=== PATIENT | male | born 1955 | race Caucasian/White ===

== ENCOUNTER 2021-05-18 11:10 | Emergency (ER) | payer OTHER, SELFPAY ==
--- NOTE | 2021-05-18 12:00 | VDLE_ITS ---
Reason For Study: Pain RIGHT LEFT GSV is normal. CFV is compressible, spontaneous, phasic, CFV is compressible, spontaneous, phasic, competent, and demonstrates normal competent and demonstrates normal augmentation. augmentation. FV is compressible, spontaneous, phasic, competent and demonstrates normal augmentation. POP V is compressible, spontaneous, phasic, competent and demonstrates normal augmentation. T/P Trunk is compressible. PTV is compressible. RT PerV is compressible. Procedure This is a venous duplex using B-mode, color flow and spectral Doppler. Exam performed portable in ED. A preliminary report was called and/or faxed to [facility]. VL/Venous Duplex US, Unilateral Interpretation Summary There is no evidence of right lower extremity deep vein thrombosis. Right great saphenous vein appears patent and compressible segmentally. Normal flow patterns left common f emoral vein Ordering Physician: Papito Garcia Referring Physician: [place] Do Performed By: Jenn King RVT
--- NOTE | 2021-05-18 15:33 | EDS_ITS ---
DATE OF SERVICE 05/18/21 CHIEF COMPLAINT: Right foot pain and near syncope. HISTORY OF PRESENT ILLNESS: This patient is a 65-year-old male who presents with right foot pain over his medial ankle for the past month and a half. The patient states that it has gradually gotten worse. The patient describes his pain as stabbing. The patient states that he had an open area from a ruptured vein. The patient states that the bleeding had stopped after this. The patient states that he has been having some persistent pain. The patient states that he was placed on an antibiotic approximately one month ago for this. The patient states that he completed the antibiotic approximately 2 weeks ago. The patient was on Keflex and doxycycline for this. The patient states that he had some pain going up his leg. He is concerned about possible blood clot. He states that nothing makes the pain worse and nothing makes it better. The patient denies any fever or chills. The patient denies any paresthesias or weakness. PAST MEDICAL HISTORY: Denies. PAST SURGICAL HISTORY: Lipoma excision from forehead. MEDICATIONS: None. ALLERGIES: None. SOCIAL HISTORY: The patient smokes one pack of alcohol per day. The patient denies any alcohol or drug use. REVIEW OF SYSTEMS: GENERAL: The patient denies any fever or chills. EYES: Denies any visual changes, blurry vision or diplopia. ENT: The patient denies any sore throat or rhinorrhea. CARDIOVASCULAR: Denies any chest pain or palpitations. RESPIRATORY: Denies any shortness of breath or cough. GI: Denies any nausea or vomiting. : The patient denies dysuria or hematuria. MUSCULOSKELETAL: The patient denies any neck pain or back pain. SKIN: The patient denies any rash or abscess. NEUROLOGIC: The patient denies any headaches or weakness. ALLERGIES: The patient denies hives or swelling. PHYSICAL EXAMINATION: GENERAL: The patient is in no acute distress. VITAL SIGNS: Stable. The patient is afebrile. HEENT: Oral mucosa is pink and moist. EXTREMITIES: There is tenderness over the medial aspect of the right ankle. There is some mild erythema. There is induration noted. There is no active bleeding noted. There is 2+ pedal pulses noted on the right. Capillary refill is less than 2 seconds in all digits. NEUROLOGIC: Cranial nerves II-XII are intact. There are no focal motor or sensory deficits noted. Strength is 5/5 bilaterally in the lower extremities. DIAGNOSTIC DATA: Venous Duplex of the right lower extremity was obtained and showed no evidence of DVT. CBC obtained and there was mild leukocytosis of 11.6. Platelets were normal. Basic metabolic profile was obtained and was essentially within normal limits. EMERGENCY DEPARTMENT COURSE AND MEDICAL DECISION MAKING: The patient was given a dose of Ancef here. The patient was given a prescription for Augmentin. IMPRESSION: Cellulitis, right ankle. DISPOSITION/PLAN: The patient was instructed to follow up with his primary care physician in 5-7 days. The patient was instructed to return if worse in any way. The patient understood and was agreeable with the plan. All questions were answered. The patient was discharged in stable condition.
[2021-05-18 21:18] LABS: Absolute Lymphocyte Count 2.35 X10^3/uL (0.83-4.51); Absolute Neutrophil Count 8.6 X10^3/uL (2.0-7.7); Basophil# 0.03 X10^3/uL; Basophil% 0.3 % (0-1); Eosinophil# 0.09 X10^3/uL; Eosinophils% 0.8 % (0-5); Hematocrit 43.8 % (40-54); Hemoglobin 14.6 g/dL (13.0-16.5); Lymphocyte # 2.35 X10^3/ul (0.83-4.51); Lymphocyte % 20.3 % (19-41); Mean Corp Hgb Conc 33.3 g/dL (32-36); Mean Corpuscular Hgb 29.2 pg (27.0-32.0); Mean Corpuscular Volume 87.6 fL (80-94); Mean Platelet Vol. 10.4 fl (6.2-12.0); Monocyte# 0.53 X10^3/uL; Monocyte% 4.6 % (0-10); NRBC Flagged by Analyzer 0 % (0-5); Neutrophil # 8.57 X10^3/uL (2.7-7.7); Neutrophil % 73.7 % (47-70); Platelet Count 196 K/mm3 (150-450); RBC Distribution Width CV 14.9 % (11.6-14.6); RBC Distribution Width SD 47.5 fl (35.1-43.9); White Blood Count 11.6 K/mm3 (4.4-11.0)
[2021-05-19 01:30] LABS: Anion Gap 4 (5-15); BUN 15 mg/dL (7-18); BUN/Creat Ratio 14.9 RATIO (10-20); Calcium,Total 8.8 mg/dL (8.5-10.1); Chloride 108 mmol/L (98-107); Creatinine, Serum 1.01 mg/dL (0.70-1.30); EST Glomerular Filtration Rate 79 mL/min (>60); Est Glom Filt Rate - Afr Amer 95 mL/min (>60); Glucose 134 mg/dL (74-106); Potassium 4.1 mmol/L (3.5-5.1); Sodium Level 140 mmol/L (136-145)
== END 2021-05-18 15:50 | disposition home or self-care (01) ==
PROVIDERS: Emergency Provider Emergency Medicine; PCP Internal Medicine; Referring Provider Emergency Medicine; Visit Provider Emergency Medicine
DX: L03.115 Cellulitis of right lower limb (principal); F17.210 Nicotine dependence, cigarettes, uncomplicated
CPT/HCPCS: 80048; 85025; 93971; 96365; 99284

== ENCOUNTER 2021-06-13 08:30 | Outpatient (RCR) | payer OTHER, SELFPAY ==
[2021-05-30 09:05] VITALS: BP 162/105; PULSE 96; RESP 18; TEMP 36.5; BMI 32.3
--- NOTE | 2021-05-30 10:19 | PCM.WC.HP ---
History of Present Illness Date of Service: 05/30/21 Chief Complaint: Wound right medial ankle History of Wound: This is a 65-year-old male who presents with a wound to the right medial ankle just distal to the malleoli secondary to rupture of a varicose vein complicated by smoking and venous insufficiency and edema. He states that he has been dealing with this wound for a few months and has been applying topical lidocaine for pain control. His family physician has recommended compression stockings and he states that he tries to wear them but states they are too painful and cannot continue to wear them for the duration of the day. He states he can only last a few hours in them. He states that the site is painful and has shown very little progression. His family physician has referred him to the wound care center to continue his treatment. He denies any weeping to the wound site. He denies any nausea, vomiting, fever, chills, or shortness of breath or other constitutional symptoms. [facility] Social History Smoking Status: Current some day smoker ROS Constitutional Constitutional: Denies chills, fever(s), malaise or weakness Eyes Eyes: Denies blurry vision, double vision or eye pain ENT HEENT: Denies dysphagia, nasal congestion, nasal discharge or sore throat Cardiovascular Cardiovascular: Denies chest pain, claudication or palpitations Respiratory/Chest Respiratory/Chest: Denies cough, productive cough or wheezing Gastrointestinal Gastrointestinal: Denies abdominal pain, constipation, diarrhea, nausea or vomiting Genitourinary Genitourinary: Denies dysuria, hematuria, urinary incontinence or urinary urgency Musculoskeletal Musculoskeletal: Reports tingling; Denies joint pain or joint stiffness Integumentary Integumentary: Denies jaundice, lesions or rash Neurologic Neurologic: Reports paresthesias and tingling; Denies dizziness or headache(s) Psychiatric Psychiatric: Denies anxiety or depression Endocrine Endocrinology: Denies cold intolerance, heat intolerance, polydipsia or polyuria Hematologic/Lymphatic Hematologic/Lymphatic: Denies easy bleeding or easy bruising Vital Signs Vital Signs Vital Signs: 05/30/21 09:05 Temperature 97.7 F L Temperature Source Temporal Pulse Rate 96 Respiratory Rate 18 Blood Pressure 162/105 H Blood Pressure Mean 124 Blood Pressure Source Monitor Blood Pressure Position Semi-Fowlers Blood Pressure Location Right Arm Weight Weight: 90.718 kg Body Mass Index (BMI) 32.3 Physical Exam Const alert, oriented x3 and no apparent distress General Appearance: cooperative and comfortable HEENT normocephalic Eyes General Eye: normal appearance of both eyes Neck General: normal visual inspection Lymph Lymphatic: no lymphadenopathy noted and no lymphedema noted Resp normal respiratory effort Cardio regular rate and regular rhythm Extremity Peripheral Pulses: Yes posterior tibial pulses present bilateral and dorsalis pedis pulses present bilateral Skin Skin Narrative: Skin is intact, soft and supple to palpation with normal skin turgor. Right lower extremity wound is noted just distal to the medial malleolus with mixed fibrous granular tissue base and puckered skin margins with surrounding rubor and hemosiderin deposition secondary to chronic venous efficiency. Localized edema about the site is appreciated. Wound demonstrates no localized erythema, purulent drainage, malodor, proximal streaking, or other localized signs of infection. There is no drainage to the wound base or from the wound. There are varicosities noted along the medial ankle and medial foot. Neuro Motor Exam: strength 5/5 throughout Debridement Note Debridement Note Wound debrided: Right medial ankle Laterality: Right Type of Debridement: Excisional debridement Anesthesia Used: 5% Lidocaine Gel and - (4 cc 1% lidocaine plain injected about the site and to the posterior tibial nerve right ankle) Depth: Down to and including healthy tissue and in the subcutaneous layer Percentage of wound debrided: 100 Instrument Used: #15 blade and - (1 mm curette) Tissue Removed: Fibrous, devitalized subcutaneous, biofilm, slough Severity: Fat Layer Exposed Amount of bleeding with debridement: Mild Bleeding Controlled with: Pressure Patient tolerated procedure: Patient tolerated procedure well Post-Debridement Measurements and Additional Note: Post-Debridement Measurements/Treatment PINEDA - Nurse 1 - General Ulcer Assessment Start: 05/30/21 09:02 Freq: Status: Active Protocol: KALI Activity Type Activity Date Activity User E-Sign Co-Sign Detail Recorded Client Recorded Date Recorded By Document 05/30/21 09:05 KYLIE [id number] 05/30/21 09:22 KYLIE 05/30/21 09:05 - Today's Visit Information Type of service Initial Visit Arrival Mode Ambulatory Patient Identification Verified (Name & Yes ) Patient Requires Transmission-Based No Precautions Height and Weight Height 5 ft 6 in Weight 90.718 kg Weight in Pounds 200.0 lbs Weight Measurement Method Estimated by Patient Body Mass Index (BMI) 32.3 BMI Classification Obese BSA - Marie 2.00 Vital Signs Temperature (97.8 F-99.1 F) 97.7 F L Temperature Source Temporal Pulse Rate (60-100) 96 Pulse Location Monitor Respiratory Rate (12-18) 18 Respiratory rate source Observation Blood Pressure (90/60-120/80) 162/105 H Blood Pressure Mean 124 Source Monitor Position Semi-Fowlers Blood Pressure Location Right Arm History Since Last Visit- (Skip if this is Patient's initial visit) Have you changed medications since your No last visit? Any new allergies or adverse reactions No Had a fall/change in ADL's that may No increase risk of falls Signs or symptoms of abuse and/or No neglect since last visit Have you been in the hospital since your No last visit? Has dressing in place as prescribed Yes Has compression in place as prescribed N/A Has offloadiing in place as prescribed N/A Experienced any changes in pain level or No management Left Footwear Regular Shoe Right Footwear Regular Shoe Pain Scale: 0-10 Numeric Is Patient Pain Free? Yes Communication Assessment Preferred language [place] Carbon Accountant Required No Teaching Assessment Preferences Verbal,Written, Demonstration Barriers to Learning None Readiness To Learn Excellent Willingness to Engage in Self Management High Activies Readiness to Engage in Self Management High Activities Anxiety Level Calm Cooperation Cooperative Perception Coherent Interest in Health Problem Asks Questions Education Importance Acknowledges Need Does Patient Smoke tobacco or other Yes substances Smoking Status Current some day smoker Is Patient Diabetic No Functional Assessment Recent Decline in Ability to Perform Denies Any Declines Culture/Pentecostal/Glazier Helper Cultural/Pentecostal Needs that may affect No Treatment Plan Would you allow our hospital operations management trainee to No meet you for the purpose of spiritual/ emotional support? Glazier Helper to contact place of uatsdin No Teaching: Wound Center [facility] Orientation/ Contacting Physician -Person Taught Patient -Teaching Method Discussion, Demonstration -Response to teaching Return demonstration, Verbalize understanding - Nurse 1 - General Ulcer Measurement Start: 05/30/21 09:02 Freq: Status: Active Protocol: Activity Type Activity Date Activity User E-Sign Co-Sign Detail Recorded Client Recorded Date Recorded By Document 05/30/21 09:05 KYLIE [id number] 05/30/21 09:22 KYLIE 05/30/21 09:05 Wound Center Nurse 1 1-right medial ankle ulcer -Combined with other wound No -Current Size (cm) - Length 1.3 -Current Size (cm) - Width 0.4 -Current Size (cm) - Depth 0.2 -Total Square Cm 0.52 -Photo Taken Yes -Epithelialization Small 1-33% -Tunneling No -Undermining/Tunneling No -Circular Undermining No -Classification - Thickness Full Thickness without Exposed Support Structure -Exudate Amt Small -Exudate Type Serosanguineous -Wound Margin Flat & Intact -Granulation Amt Small (1-33%) -Granulation Quality [place] -Slough/Fibrin Yes -Necrosis Amt Medium (34-66%) -Necrotic Tissue Type Adherent Slough -Structure Exposed N/A -Texture (Марина-wound Skin Appearance) Assessed, Localized Edema -Moisture (Марина-wound Skin Appearance) Assessed,Dry/ Scaly -Color (Марина-wound Skin Appearance) Assessed, Hemosiderin Staining -Temperature (Марина-wound Skin No Abnormality Appearance) (Pt Warm) -Tenderness on Palpation (Марина-wound No Skin Appearance) -Ulcer Cleansing Wound Cleanser -Foul Odor after Cleansing No -Anesthetic Used 4% Lidocaine Solution Lower Limb Edema Present Yes Right Calf (cm) 39.5 Right Ankle (cm) 23.6 Left Calf (cm) 39.7 Left Ankle (cm) 21.6 Assessment/Plan Assessment/Plan (1) Non-pressure chronic ulcer of right ankle with fat layer exposed: CODE(S): L97.312 - Non-pressure chronic ulcer of right ankle with fat layer exposed (2) Varicose veins of lower extremity with pain: CODE(S): I83.819 - Varicose veins of unspecified lower extremity with pain (3) Pain in right ankle and joints of right foot: CODE(S): M25.571 - Pain in right ankle and joints of right foot (4) Radiculopathy, lumbar region: CODE(S): M54.16 - Radiculopathy, lumbar region (5) H/O acute gouty arthritis: CODE(S): Z87.39 - Personal history of other diseases of the musculoskeletal system and connective tissue (6) Edema of lower extremity due to peripheral venous insufficiency: CODE(S): I87.2 - Venous insufficiency (chronic) (peripheral) PLAN: This is a 65-year-old male who presents to the wound care center for a right medial ankle wound secondary to chronic venous insufficiency. He has history of gout and radiculopathy lumbar region. He has tried to wear compression stockings but states he can only tolerate them for a few hours and at the end of his work shift his legs hurt and he has to remove them. He is followed by his primary care physician for this wound but states it has made little progress. He has tried topical lidocaine to control the pain and states that he previously had an incident where he passed out a few weeks ago, likely due to topical lidocaine absorption. Ulceration right medial ankle distal to the medial malleolus was anesthetized with topical 5% lidocaine gel and sharply debrided with a #15 blade and a 1 mm curette. During debridement patient felt pain and a local anesthetic block was performed of the surrounding tissue and posterior tibial nerve consisting of 4 cc 1% lidocaine plain. Debridement was halted to allow anesthetic medication to take effect. Once patient was numb debridement commenced removing fibrous, devitalized subcutaneous, biofilm, slough. Ulceration site dressed with Vidhi, hydrogel, dry sterile dressing, and a dual layer of Tubigrip was applied to the right lower extremity. I discussed with patient that he is to continue to elevate both lower extremities at times of rest and to be compliant in wearing his Tubigrip stocking until he can get back into his compression stockings full-time. I discussed with him that it is essential to be compliant in use of compression stockings to promote wound healing, discourage further edema, and ulcerative wound secondary to his chronic venous insufficiency. I also discussed if he is having difficulty wearing his compression stocking that other styles of compression stocking including zipper or Velcro can be prescribed so that he may remain compliant in this. Patient voices understanding of this. I discussed with patient that he is to continue dressing changes daily consisting of Vidhi and hydrogel to the site and dressing with clean sterile dry dressings. I discussed with him that he is to monitor for any localized redness or redness that may spread up the leg, purulent drainage, malodor, increasing pain that is not controlled by [id number] pain medications, or if he experiences any fever, nausea, vomiting, or chills that he is to report to the emergency room as these are signs of progressing infection. Patient voices understanding of this. I reviewed and discussed his case today. Debridement was performed today as noted in the clinical panel to all of the ulcer sites. The following work up and care recommendations were made: Dressing: Vidhi and hydrogel Wash: Soap and water. He may pat the site dry. Tissue growth optimization: Vidhi Offload: Compression via Tubigrip stocking Vascular: Vascular status intact with palpable pedal pulses Edema: Patient to wear Tubigrip stocking and elevate lower extremity to control edema Infection: No localized signs of infection Pain: Patient may take [id number] Tylenol extra strength and alternate with Motrin Host factors: Chronic venous insufficiency I answered all the patient's questions. To return to the wound healing center in 1 week or call sooner if the patient has any questions or concerns. The problems addressed require a low medical decision making level which includes two or more minor problems, a stable chronic illness, or an acute uncomplicated illness or injury. The medical decision making level is low. There is noted low risk of morbidity after considering this treatment plan and diagnostic data. Note: [employer]ood speech recognition lay brother software was used to create portions of this document. Sound-alike and misspelled words, as well as other lay brother errors may be contained in the documentation.
[2021-06-06 08:30] VITALS: BP 153/94; PULSE 101; RESP 16; TEMP 36.2; BMI 32.3
--- NOTE | 2021-06-06 08:47 | PCM.WC.PN ---
History of Present Illness Date of Service: 06/06/21 Chief Complaint: Wound right medial ankle History of Wound: This is a 65-year-old male who presents with a wound to the right medial ankle just distal to the malleoli secondary to rupture of a varicose vein complicated by smoking and venous insufficiency and edema. He states that he has been dealing with this wound for a few months and has been applying topical lidocaine for pain control. His family physician has recommended compression stockings and he states that he tries to wear them but states they are too painful and cannot continue to wear them for the duration of the day. He states he can only last a few hours in them. He states that the site is painful and has shown very little progression. His family physician has referred him to the wound care center to continue his treatment. He denies any weeping to the wound site. He denies any nausea, vomiting, fever, chills, or shortness of breath or other constitutional symptoms. Subjective Subjective This 65-year-old male presents for follow-up of right medial ankle ulceration secondary to chronic venous insufficiency. He states the numbing medication lasted till mid afternoon last week but states that the site was still painful following his debridement. He took [id number] Tylenol for his discomfort. He continues to deny any nausea, vomiting, fever, chills, shortness of breath, or other constitutional symptoms. He states that he has noticed a significant decrease in size since his last visit here and has been compliant with his Tubigrip compression and elevation of his legs. Objective Data Objective Data Vital Signs: Vital Signs Temp Pulse Resp BP 97.2 F L 101 H 16 153/94 H 06/06/21 08:30 06/06/21 08:30 06/06/21 08:30 06/06/21 08:30 Oxygen Delivery Method Room Air Weight: 90.718 kg Body Mass Index (BMI) 32.3 Physical Exam Const alert, oriented x3 and no apparent distress General Appearance: cooperative and comfortable HEENT normocephalic Eyes General Eye: normal appearance of both eyes Neck General: normal visual inspection Lymph Lymphatic: no lymphadenopathy noted and no lymphedema noted Resp normal respiratory effort Cardio regular rate and regular rhythm Skin Skin Narrative: Skin is intact, soft and supple to palpation with normal skin turgor. Right lower extremity wound is noted just distal to the medial malleolus with mixed fibrous granular tissue base and puckered skin margins with surrounding rubor, which is decreasing, and hemosiderin deposition secondary to chronic venous efficiency. Localized edema about the site is resolving. Wound demonstrates no localized erythema, purulent drainage, malodor, proximal streaking, or other localized signs of infection. There is no drainage to the wound base or from the wound. There are varicosities noted along the medial ankle and medial foot. Neuro Motor Exam: strength 5/5 throughout Debridement Note Debridement Note Wound debrided: Right medial ankle distal to the medial malleoli Laterality: Right Wound Grade/Stage: Lovell stage I Type of Debridement: Excisional debridement Anesthesia Used: 5% Lidocaine Gel Depth: in the subcutaneous layer Percentage of wound debrided: 100 Instrument Used: - (1 mm curette) Tissue Removed: Fibrous, devitalized subcutaneous, biofilm, slough Severity: Fat Layer Exposed Amount of bleeding with debridement: Mild Bleeding Controlled with: Pressure Patient tolerated procedure: Patient tolerated procedure well Post-Debridement Measurements and Additional Note: Post-Debridement Measurements/Treatment - Nurse 1 - General Ulcer Assessment Start: 05/30/21 09:02 Freq: Status: Active Protocol: [email or web address].[email or web address] Activity Type Activity Date Activity User E-Sign Co-Sign Detail Recorded Client Recorded Date Recorded By Document 05/30/21 09:05 [id number] 05/30/21 09:22 Document 06/06/21 08:30 [facility] [id number] 06/06/21 08:36 [facility] 05/30/21 06/06/21 09:05 08:30 - Today's Visit Information Type of service Initial Visit Follow-up Visit (Physician/INTERMEDIATE FRAME TENDER ) Arrival Mode Ambulatory Ambulatory Transfer Assistance None Patient Identification Verified (Name & Yes Yes ) Patient Requires Transmission-Based No No Precautions Height and Weight Height 5 ft 6 in Weight 90.718 kg Weight in Pounds 200.0 lbs Weight Measurement Method Estimated by Patient Body Mass Index (BMI) 32.3 32.3 BMI Classification Obese Obese BSA - Marie 2.00 Vital Signs Temperature (97.8 F-99.1 F) 97.7 F L 97.2 F L Temperature Source Temporal Temporal Pulse Rate (60-100) 96 101 H Pulse Location Monitor Monitor Respiratory Rate (12-18) 18 16 Respiratory rate source Observation Observation Oxygen Delivery Method Room Air Blood Pressure (90/60-120/80) 162/105 H 153/94 H Blood Pressure Mean (mm Hg) 124 113 Source Monitor Monitor Position Semi-Fowlers Sitting Blood Pressure Location Right Arm Left Arm History Since Last Visit- (Skip if this is Patient's initial visit) Have you changed medications since your No No last visit? Any new allergies or adverse reactions No No Had a fall/change in ADL's that may No No increase risk of falls Signs or symptoms of abuse and/or No No neglect since last visit Have you been in the hospital since your No No last visit? Has dressing in place as prescribed Yes No Has compression in place as prescribed N/A Yes Has offloadiing in place as prescribed N/A N/A Experienced any changes in pain level or No No management Left Footwear Regular Shoe Regular Shoe Right Footwear Regular Shoe Regular Shoe Pain Scale: 0-10 Numeric Is Patient Pain Free? Yes Yes Communication Assessment Preferred language [employer] Chemistry Teacher Required No Teaching Assessment Preferences Verbal,Written, Demonstration Barriers to Learning None Readiness To Learn Excellent Willingness to Engage in Self Management High Activies Readiness to Engage in Self Management High Activities Anxiety Level Calm Cooperation Cooperative Perception Coherent Interest in Health Problem Asks Questions Education Importance Acknowledges Need Does Patient Smoke tobacco or other Yes substances Smoking Status Current some day smoker Is Patient Diabetic No Functional Assessment Recent Decline in Ability to Perform Denies Any Declines 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 Cold Storage Superintendent to contact place of muslim No Teaching: Wound Center [facility] Orientation/ Contacting Physician -Person Taught Patient -Teaching Method Discussion, Demonstration -Response to teaching Return demonstration, Verbalize understanding - Nurse 1 - General Ulcer Measurement Start: 05/30/21 09:02 Freq: Status: Active Protocol: Activity Type Activity Date Activity User E-Sign Co-Sign Detail Recorded Client Recorded Date Recorded By Document 05/30/21 09:05 [id number] 05/30/21 09:22 Document 06/06/21 08:30 [facility] [id number] 06/06/21 08:36 BMF 05/30/21 06/06/21 09:05 08:30 Wound Center Nurse 1 1-right medial ankle ulcer -Combined with other wound No No -Current Size (cm) - Length 1.3 0.5 -Current Size (cm) - Width 0.4 0.3 -Current Size (cm) - Depth 0.2 0.1 -Total Square Cm 0.52 0.15 -Date of Last Picture (Recall this 06/06/21 field) -Photo Taken Yes Yes -Epithelialization Small 1-33% Small 1-33% -Tunneling No No -Undermining/Tunneling No No -Circular Undermining No No -Classification - Thickness Full Thickness without Exposed Support Structure -Exudate Amt Small Medium -Exudate Type Serosanguineous Serous -Wound Margin Flat & Intact Distinct, Outline Attached -Granulation Amt Small (1-33%) Small (1-33%) -Granulation Quality Emerald Red -Slough/Fibrin Yes Yes -Necrosis Amt Medium (34-66%) Large (67-100%) -Necrotic Tissue Type Adherent Slough Adherent Slough -Structure Exposed N/A -Texture (Марина-wound Skin Appearance) Assessed, Assessed, Localized Edema Scarring -Moisture (Марина-wound Skin Appearance) Assessed,Dry/ Assessed,Dry/ Scaly Scaly -Color (Марина-wound Skin Appearance) Assessed, Assessed Hemosiderin Staining -Temperature (Марина-wound Skin No Abnormality No Abnormality Appearance) (Pt Warm) (Pt Warm) -Tenderness on Palpation (Марина-wound No Yes Skin Appearance) -Ulcer Cleansing Wound Cleanser Rinsed/ Irrigated with Saline -Foul Odor after Cleansing No No -Anesthetic Used 4% Lidocaine 5% Lidocaine Solution Gel Lower Limb Edema Present Yes Yes Right Calf (cm) 39.5 42 Right Ankle (cm) 23.6 24.5 Left Calf (cm) 39.7 Left Ankle (cm) 21.6 WC - Nurse 2 - General Ulcer CM Notes Start: 05/30/21 09:02 Freq: Status: Active Protocol: Activity Type Activity Date Activity User E-Sign Co-Sign Detail Recorded Client Recorded Date Recorded By Document 05/30/21 12:49 [id number] 05/30/21 12:53 PL 05/30/21 12:49 Wound Center Nurse 2 1-right medial ankle ulcer -Time 09:43 -Correct Patient Yes -Correct Side, Site, Position Yes -Correct Procedure Yes -Procedure Performed Yes -Type of Procedure Debridement -Clinical Debridement Subcutaneous -Tissue Removed Subcutaneous -Post Debridement (cm) - Length 1.3 -Post Debridement (cm) - Width 0.4 -Post Debridement (cm) - Depth 0.2 -Total Square (Post) (cm) 0.52 -Area of Debridement (cm) - Length 1.3 -Area of Debridement (cm) - Width 0.4 -Total Square (Area) (cm) 0.52 -Tunneling No -Undermining/Tunneling No -Circular Undermining No -Wound/Ulcer Outcome Not Healed -Ulcer Cleansing Rinsed/ Irrigated with Saline -Foul Odor after Cleansing No -Bioengineered Tissue No -Bleeding Controlled with Pressure -Treatment Response Procedure Tolerated Well -Debridement - Subq, 1st 20sq cm Yes Pain Scale: 0-10 Numeric Is Patient Pain Free? Yes WC - Nurse 3 - General Ulcer D/C NN Start: 05/30/21 09:02 Freq: Status: Active Protocol: Activity Type Activity Date Activity User E-Sign Co-Sign Detail Recorded Client Recorded Date Recorded By Document 05/30/21 12:49 PL [id number] 05/30/21 12:53 PL 05/30/21 12:49 Is Patient Pain Free? Yes Teaching: Wound Center Compression Wraps & Stockings -Person Taught Patient -Teaching Method Discussion -Response to teaching Verbalize understanding *Welcome to the Wound Center -Person Taught Patient -Teaching Method Discussion -Response to teaching Verbalize understanding Wound Care Nurse 3 1-right medial ankle ulcer -Ulcer Cleansing Rinsed/ Irrigated with Saline -Foul Odor after Cleansing No -Primary Dressing Applied Promogran Vidhi Matter -Primary Dressing Covered/Secured with Dry Gauze, Secured with Tape -Promogran Vidhi Matter 1 Right -Tubular Bandage Double Layer -Size of Tubigrip Used Size E -Size E ($) 2 WC - Visit Discharge Discharge Condition Stable Ambulatory Status Ambulatory Transportation Private Auto Assessment/Plan Assessment/Plan (1) Non-pressure chronic ulcer of right ankle with fat layer exposed: CODE(S): L97.312 - Non-pressure chronic ulcer of right ankle with fat layer exposed (2) Varicose veins of lower extremity with pain: CODE(S): I83.819 - Varicose veins of unspecified lower extremity with pain (3) Pain in right ankle and joints of right foot: CODE(S): M25.571 - Pain in right ankle and joints of right foot (4) Radiculopathy, lumbar region: CODE(S): M54.16 - Radiculopathy, lumbar region (5) H/O acute gouty arthritis: CODE(S): Z87.39 - Personal history of other diseases of the musculoskeletal system and connective tissue (6) Edema of lower extremity due to peripheral venous insufficiency: CODE(S): I87.2 - Venous insufficiency (chronic) (peripheral) PLAN: This is a 65-year-old male who presents to the wound care center for a right medial ankle wound secondary to chronic venous insufficiency. He has history of gout and radiculopathy lumbar region. He has tried to wear compression stockings but states he can only tolerate them for a few hours and at the end of his work shift his legs hurt and he has to remove them. He is followed by his primary care physician for this wound but states it has made little progress. He has tried topical lidocaine to control the pain and states that he previously had an incident where he passed out a few weeks ago, likely due to topical lidocaine absorption. Ulceration right medial ankle distal to the medial malleolus was anesthetized with topical 5% lidocaine gel and sharply debrided with a 1 mm curette. Debridement was performed removing fibrous, devitalized subcutaneous, biofilm, slough. Ulceration demonstrates reduction in size compared to previous visit and today measures 0.5 cm x 0.3 cm x 0.1 cm. Surrounding rubor is resolving along with his localized edema to his right lower extremity. He states that the site has not hurt him in the last few days, for the first time in a few months. He is pleased with the results and his reducing ulceration size. Ulceration site dressed with Vidhi, hydrogel, dry sterile dressing, and a dual layer of Tubigrip was applied to the right lower extremity. I discussed with patient that he is to continue to elevate both lower extremities at times of rest and to be compliant in wearing his Tubigrip stocking until he can get back into his compression stockings full-time. I discussed with him that it is essential to be compliant in use of compression stockings to promote wound healing, discourage further edema, and ulcerative wound secondary to his chronic venous insufficiency. I also discussed if he is having difficulty wearing his compression stocking that other styles of compression stocking including zipper or Velcro can be prescribed so that he may remain compliant in this. Patient voices understanding of this. I discussed with patient that he is to continue dressing changes daily consisting of Vidhi and hydrogel to the site and dressing with clean sterile dry dressings. I discussed with him that he is to monitor for any localized redness or redness that may spread up the leg, purulent drainage, malodor, increasing pain that is not controlled by [id number] pain medications, or if he experiences any fever, nausea, vomiting, or chills that he is to report to the emergency room as these are signs of progressing infection. Patient voices understanding of this. I reviewed and discussed his case today. Debridement was performed today as noted in the clinical panel to all of the ulcer sites. The following work up and care recommendations were made: Dressing: Vidhi and hydrogel Wash: Soap and water. He may pat the site dry. Tissue growth optimization: Vidhi Offload: Compression via Tubigrip stocking Vascular: Vascular status intact with palpable pedal pulses Edema: Patient to wear Tubigrip stocking and elevate lower extremity to control edema Infection: No localized signs of infection Pain: Patient may take [id number] Tylenol extra strength and alternate with Motrin Host factors: Chronic venous insufficiency I answered all the patient's questions. To return to the wound healing center in 1 week or call sooner if the patient has any questions or concerns. The problems addressed require a low medical decision making level which includes two or more minor problems, a stable chronic illness, or an acute uncomplicated illness or injury. The medical decision making level is low. There is noted low risk of morbidity after considering this treatment plan and diagnostic data. Note: -[employer] speech recognition senior solutions consultant software was used to create portions of this document. Sound-alike and misspelled words, as well as other senior solutions consultant errors may be contained in the documentation.
[2021-06-13 08:20] VITALS: BP 138/89; PULSE 101; RESP 20; TEMP 36.5; BMI 32.3
--- NOTE | 2021-06-13 09:14 | PCM.WC.PN ---
History of Present Illness Date of Service: 06/13/21 Chief Complaint: Wound right medial ankle History of Wound: This is a 65-year-old male who presents with a wound to the right medial ankle just distal to the malleoli secondary to rupture of a varicose vein complicated by smoking and venous insufficiency and edema. He states that he has been dealing with this wound for a few months and has been applying topical lidocaine for pain control. His family physician has recommended compression stockings and he states that he tries to wear them but states they are too painful and cannot continue to wear them for the duration of the day. He states he can only last a few hours in them. He states that the site is painful and has shown very little progression. His family physician has referred him to the wound care center to continue his treatment. He denies any weeping to the wound site. He denies any nausea, vomiting, fever, chills, or shortness of breath or other constitutional symptoms. Subjective Subjective This is a 65-year-old male who presents to the wound care center for follow-up of ulceration right medial ankle secondary to chronic venous insufficiency, and ruptured varicose vein. Patient denies any nausea, vomiting, fever, chills, shortness of breath, or other contusional symptoms. He states that he had to cut out the side of his right shoe so that it does not rub against his ulceration site which causes him pain. He states this is helping him. He states he is applying the hydrogel to the wound site and continuing to elevate his legs when at rest. He states that he does have compression stockings and plans to wear them again once his ulceration site is healed. He has no other complaints. Objective Data Objective Data Vital Signs: Vital Signs Temp Pulse Resp BP 97.7 F L 101 H 20 H 138/89 H 06/13/21 08:20 06/13/21 08:20 06/13/21 08:20 06/13/21 08:20 Oxygen Delivery Method Room Air Weight: 90.718 kg Body Mass Index (BMI) 32.3 Physical Exam Const alert, oriented x3 and no apparent distress General Appearance: cooperative and comfortable HEENT normocephalic Eyes General Eye: normal appearance of both eyes Neck General: normal visual inspection Lymph Lymphatic: no lymphadenopathy noted and no lymphedema noted Resp normal respiratory effort Cardio regular rate and regular rhythm Skin Skin Narrative: Skin is intact, soft and supple to palpation with normal skin turgor. Right lower extremity wound is noted just distal to the medial malleolus with mixed fibrous granular tissue base and puckered skin margins with surrounding rubor, which is decreasing, and hemosiderin deposition secondary to chronic venous efficiency. Localized edema about the site is resolving. Wound demonstrates no localized erythema, purulent drainage, malodor, proximal streaking, or other localized signs of infection. There is no drainage to the wound base or from the wound. There are varicosities noted along the medial ankle and medial foot. Neuro Motor Exam: strength 5/5 throughout Debridement Note Debridement Note Wound debrided: Right medial ankle Laterality: Right Wound Grade/Stage: Lovell stage I Type of Debridement: Excisional debridement Anesthesia Used: 5% Lidocaine Gel and Cetacaine Depth: in the subcutaneous layer Percentage of wound debrided: 100 Instrument Used: - (1 mm curette) Tissue Removed: Fibrous, devitalized subcutaneous, biofilm, slough Severity: Fat Layer Exposed Amount of bleeding with debridement: Mild Bleeding Controlled with: Pressure Patient tolerated procedure: Patient tolerated procedure well Post-Debridement Measurements and Additional Note: Post-Debridement Measurements/Treatment - Nurse 1 - General Ulcer Assessment Start: 05/30/21 09:02 Freq: Status: Active Protocol: KALI Activity Type Activity Date Activity User E-Sign Co-Sign Detail Recorded Client Recorded Date Recorded By Document 05/30/21 09:05 [id number] 05/30/21 09:22 Document 06/06/21 08:30 [facility] [id number] 06/06/21 08:36 BM Document 06/13/21 08:20 DL [id number] 06/13/21 08:26 DL 05/30/21 06/06/21 06/13/21 09:05 08:30 08:20 - Today's Visit Information Type of service Initial Visit Follow-up Visit Follow-up Visit (Physician/STRANDING SUPERVISOR (Physician/STRANDING SUPERVISOR ) ) Arrival Mode Ambulatory Ambulatory Ambulatory Transfer Assistance None None Patient Identification Verified (Name & Yes Yes Yes ) Patient Requires Transmission-Based No No No Precautions Height and Weight Height 5 ft 6 in Weight 90.718 kg Weight in Pounds 200.0 lbs Weight Measurement Method Estimated by Patient Body Mass Index (BMI) 32.3 32.3 32.3 BMI Classification Obese Obese Obese BSA - Marie 2.00 Vital Signs Temperature (97.8 F-99.1 F) 97.7 F L 97.2 F L 97.7 F L Temperature Source Temporal Temporal Temporal Pulse Rate (60-100) 96 101 H 101 H Pulse Location Monitor Monitor Monitor Respiratory Rate (12-18) 18 16 20 H Respiratory rate source Observation Observation Observation Oxygen Delivery Method Room Air Blood Pressure (90/60-120/80) 162/105 H 153/94 H 138/89 H Blood Pressure Mean (mm Hg) 124 113 105 Source Monitor Monitor Monitor Position Semi-Fowlers Sitting Blood Pressure Location Right Arm Left Arm History Since Last Visit- (Skip if this is Patient's initial visit) Have you changed medications since your No No No last visit? Any new allergies or adverse reactions No No No Had a fall/change in ADL's that may No No No increase risk of falls Signs or symptoms of abuse and/or No No No neglect since last visit Have you been in the hospital since your No No No last visit? Has dressing in place as prescribed Yes No Yes Has compression in place as prescribed N/A Yes Yes Has offloadiing in place as prescribed N/A N/A N/A Experienced any changes in pain level or No No Yes management Left Footwear Regular Shoe Regular Shoe Right Footwear Regular Shoe Regular Shoe Pain Scale: 0-10 Numeric Is Patient Pain Free? Yes Yes Yes Communication Assessment Preferred language [place] Room Working Supervisor Required No Teaching Assessment Preferences Verbal,Written, Demonstration Barriers to Learning None Readiness To Learn Excellent Willingness to Engage in Self Management High Activies Readiness to Engage in Self Management High Activities Anxiety Level Calm Cooperation Cooperative Perception Coherent Interest in Health Problem Asks Questions Education Importance Acknowledges Need Does Patient Smoke tobacco or other Yes substances Smoking Status Current some day smoker Is Patient Diabetic No Functional Assessment Recent Decline in Ability to Perform Denies Any Declines Culture/Hindu/Director Of Volunteer Services Cultural/Hindu Needs that may affect No Treatment Plan Would you allow our hospital sustain engineer to No meet you for the purpose of spiritual/ emotional support? Director Of Volunteer Services to contact place of rastafari No Teaching: Wound Center [facility] Orientation/ Contacting Physician -Person Taught Patient -Teaching Method Discussion, Demonstration -Response to teaching Return demonstration, Verbalize understanding [facility] Nurse 1 - General Ulcer Measurement Start: 05/30/21 09:02 Freq: Status: Active Protocol: Activity Type Activity Date Activity User E-Sign Co-Sign Detail Recorded Client Recorded Date Recorded By Document 05/30/21 09:05 [id number] 05/30/21 09:22 Document 06/06/21 08:30 [facility] [id number] 06/06/21 08:36 BMF Document 06/13/21 08:20 DL [id number] 06/13/21 08:26 DL 05/30/21 06/06/21 06/13/21 09:05 08:30 08:20 Wound Center Nurse 1 1-right medial ankle ulcer -Combined with other wound No No -Current Size (cm) - Length 1.3 0.5 0.6 -Current Size (cm) - Width 0.4 0.3 0.1 -Current Size (cm) - Depth 0.2 0.1 0.1 -Total Square Cm 0.52 0.15 0.06 -Date of Last Picture (Recall this 06/06/21 field) -Photo Taken Yes Yes No -Epithelialization Small 1-33% Small 1-33% -Tunneling No No -Undermining/Tunneling No No -Circular Undermining No No -Classification - Thickness Full Thickness without Exposed Support Structure -Exudate Amt Small Medium None Present -Exudate Type Serosanguineous Serous -Wound Margin Flat & Intact Distinct, Flat & Intact Outline Attached -Granulation Amt Small (1-33%) Small (1-33%) Small (1-33%) -Granulation Quality [place] Red [place] -Slough/Fibrin Yes Yes -Necrosis Amt Medium (34-66%) Large (67-100%) None Present (0 %) -Necrotic Tissue Type Adherent Slough Adherent Slough -Structure Exposed N/A N/A -Texture (Марина-wound Skin Appearance) Assessed, Assessed, Scarring Localized Edema Scarring -Moisture (Марина-wound Skin Appearance) Assessed,Dry/ Assessed,Dry/ Dry/Scaly Scaly Scaly -Color (Марина-wound Skin Appearance) Assessed, Assessed Hemosiderin Hemosiderin Staining Staining -Temperature (Марина-wound Skin No Abnormality No Abnormality No Abnormality Appearance) (Pt Warm) (Pt Warm) (Pt Warm) -Tenderness on Palpation (Марина-wound No Yes No Skin Appearance) -Ulcer Cleansing Wound Cleanser Rinsed/ Soap and Water Irrigated with Saline -Foul Odor after Cleansing No No No -Anesthetic Used 4% Lidocaine 5% Lidocaine 5% Lidocaine Solution Gel Gel Lower Limb Edema Present Yes Yes Right Calf (cm) 39.5 42 38 Right Ankle (cm) 23.6 24.5 22.8 Left Calf (cm) 39.7 Left Ankle (cm) 21.6 WC - Nurse 2 - General Ulcer CM Notes Start: 05/30/21 09:02 Freq: Status: Active Protocol: Activity Type Activity Date Activity User E-Sign Co-Sign Detail Recorded Client Recorded Date Recorded By Document 05/30/21 12:49 PL [id number] 05/30/21 12:53 PL Document 06/06/21 12:37 PL [id number] 06/06/21 12:38 PL 05/30/21 06/06/21 12:49 12:37 Wound Center Nurse 2 1-right medial ankle ulcer -Time 09:43 08:43 -Correct Patient Yes Yes -Correct Side, Site, Position Yes Yes -Correct Procedure Yes Yes -Procedure Performed Yes Yes -Type of Procedure Debridement Debridement -Clinical Debridement Subcutaneous Subcutaneous -Tissue Removed Subcutaneous Subcutaneous -Post Debridement (cm) - Length 1.3 0.5 -Post Debridement (cm) - Width 0.4 0.3 -Post Debridement (cm) - Depth 0.2 0.1 -Total Square (Post) (cm) 0.52 0.15 -Area of Debridement (cm) - Length 1.3 0.5 -Area of Debridement (cm) - Width 0.4 0.3 -Total Square (Area) (cm) 0.52 0.15 -Tunneling No No -Undermining/Tunneling No No -Circular Undermining No No -Wound/Ulcer Outcome Not Healed Not Healed -Ulcer Cleansing Rinsed/ Rinsed/ Irrigated with Irrigated with Saline Saline -Foul Odor after Cleansing No No -Bioengineered Tissue No No -Bleeding Controlled with Pressure -Treatment Response Procedure Tolerated Well -Debridement - Subq, 1st 20sq cm Yes Yes Pain Scale: 0-10 Numeric Is Patient Pain Free? Yes Yes PINEDA - Nurse 3 - General Ulcer D/C NN Start: 05/30/21 09:02 Freq: Status: Active Protocol: Activity Type Activity Date Activity User E-Sign Co-Sign Detail Recorded Client Recorded Date Recorded By Document 05/30/21 12:49 PL [id number] 05/30/21 12:53 PL Document 06/06/21 08:53 [facility] [id number] 06/06/21 08:55 BMF Document 06/13/21 09:06 ID [id number] 06/13/21 09:07 AK 05/30/21 06/06/21 06/13/21 12:49 08:53 09:06 Pain Scale: 0-10 Numeric Is Patient Pain Free? Yes Yes Yes Teaching: Wound Center Compression Wraps & Stockings -Person Taught Patient -Teaching Method Discussion -Response to teaching Verbalize understanding *Welcome to the Wound Center -Person Taught Patient -Teaching Method Discussion -Response to teaching Verbalize understanding Wound Care Nurse 3 1-right medial ankle ulcer -Ulcer Cleansing Rinsed/ Rinsed/ Rinsed/ Irrigated with Irrigated with Irrigated with Saline Saline Saline -Foul Odor after Cleansing No No No -Negative Pressure Wound Therapy N/A -Primary Dressing Applied Promogran Promogran Promogran Vidhi Matter Vidhi Matter Vidhi Matter -Other Dressing hydrogel -Primary Dressing Covered/Secured with Dry Gauze, Dry Gauze, Dry Gauze, Secured with Secured with Secured with Tape Tape Tape -Promogran Vidhi Matter 1 1 1 Марина-Wound Care Ointment Other/Comment hydrogel Right -Tubular Bandage Double Layer -Size of Tubigrip Used Size E -Size E ($) 2 -Other applied pts own double layer tubi Treatment Response Procedure Tolerated Well WC - Visit Discharge Discharge Condition Stable Stable Stable Ambulatory Status Ambulatory Ambulatory Ambulatory Transportation Private Auto Private Auto Private Auto Medication Reconcilliation completed & Yes provided to patient/care provider Clinical Summary of Care Provided Yes Assessment/Plan Assessment/Plan (1) Non-pressure chronic ulcer of right ankle with fat layer exposed: CODE(S): L97.312 - Non-pressure chronic ulcer of right ankle with fat layer exposed (2) Varicose veins of lower extremity with pain: CODE(S): I83.819 - Varicose veins of unspecified lower extremity with pain (3) Pain in right ankle and joints of right foot: CODE(S): M25.571 - Pain in right ankle and joints of right foot (4) Radiculopathy, lumbar region: CODE(S): M54.16 - Radiculopathy, lumbar region (5) H/O acute gouty arthritis: CODE(S): Z87.39 - Personal history of other diseases of the musculoskeletal system and connective tissue (6) Edema of lower extremity due to peripheral venous insufficiency: CODE(S): I87.2 - Venous insufficiency (chronic) (peripheral) PLAN: This is a 65-year-old male who presents to the wound care center for a right medial ankle wound secondary to chronic venous insufficiency. He has history of gout and radiculopathy lumbar region. He has tried to wear compression stockings but states he can only tolerate them for a few hours and at the end of his work shift his legs hurt and he has to remove them. He is followed by his primary care physician for this wound but states it has made little progress. He has tried topical lidocaine to control the pain and states that he previously had an incident where he passed out, likely due to topical lidocaine absorption. I reviewed LEAS from 05/02/2021 which demonstrates no evidence of arterial occlusive disease in the left lower extremity at rest with normal digital perfusion noted and triphasic flow noted in the left common femoral artery left popliteal artery left posterior tibial artery and left dorsalis pedis artery. Right lower PVR demonstrates no evidence of arterial occlusive disease in the right lower extremity at rest. Normal digital perfusion noted. Triphasic flow noted in the right common femoral artery, right popliteal artery, right posterior tibial artery and right dorsalis pedis artery. Ulceration right medial ankle distal to the medial malleolus was anesthetized with topical 5% lidocaine gel and sharply debrided with a 1 mm curette. Debridement was performed removing fibrous, devitalized subcutaneous, biofilm, slough. Ulceration demonstrates reduction in size compared to previous visit and today measures 0.6 cm x 0.1 cm x 0.1 cm. Surrounding rubor is resolving along with his localized edema to his right lower extremity. He states that he only has minimal pain, mostly following debridement. He is pleased with the results and his reducing ulceration size. Ulceration site dressed with Vidhi, hydrogel, dry sterile dressing, and a dual layer of Tubigrip was applied to the right lower extremity. I discussed with patient that he is to continue to elevate both lower extremities at times of rest and to be compliant in wearing his Tubigrip stocking until he can get back into his compression stockings full-time. I discussed with him that it is essential to be compliant in use of compression stockings to promote wound healing, discourage further edema, and ulcerative wound secondary to his chronic venous insufficiency. I also discussed if he is having difficulty wearing his compression stocking that other styles of compression stocking including zipper or Velcro can be prescribed so that he may remain compliant in this. Patient voices understanding of this. I discussed with patient that he is to continue dressing changes daily consisting of Vidhi and hydrogel to the site and dressing with clean sterile dry dressings. I discussed with him that he is to monitor for any localized redness or redness that may spread up the leg, purulent drainage, malodor, increasing pain that is not controlled by [id number] pain medications, or if he experiences any fever, nausea, vomiting, or chills that he is to report to the emergency room as these are signs of progressing infection. Patient voices understanding of this. I reviewed and discussed his case today. Debridement was performed today as noted in the clinical panel to all of the ulcer sites. The following work up and care recommendations were made: Dressing: Vidhi and hydrogel Wash: Soap and water. He may pat the site dry. Tissue growth optimization: Vidhi Offload: Compression via Tubigrip stocking Vascular: Vascular status intact with palpable pedal pulses Edema: Patient to wear Tubigrip stocking and elevate lower extremity to control edema Infection: No localized signs of infection Pain: Patient may take [id number] Tylenol extra strength and alternate with Motrin Host factors: Chronic venous insufficiency I answered all the patient's questions. To return to the wound healing center in 1 week or call sooner if the patient has any questions or concerns. Note: [employer] speech recognition sales utility representative software was used to create portions of this document. Sound-alike and misspelled words, as well as other sales utility representative errors may be contained in the documentation.
== END 2021-06-17 23:59 | disposition home or self-care (01) ==
LOC: WC 08:30
PROVIDERS: PCP Internal Medicine; Visit Provider Student in an Organized Health Care Education/Training Program
DX: L97.312 Non-pressure chronic ulcer of right ankle with fat layer exposed (principal); R60.0 Localized edema; I83.819 Varicose veins of unspecified lower extremity with pain; M25.571 Pain in right ankle and joints of right foot; M54.16 Radiculopathy, lumbar region; I87.2 Venous insufficiency (chronic) (peripheral); F17.200 Nicotine dependence, unspecified, uncomplicated; Z87.39 Personal history of other diseases of the musculoskeletal system and connective tissue
CPT/HCPCS: 11042; 99213; G0463

== ENCOUNTER 2021-07-18 09:15 | Outpatient (RCR) | payer OTHER, SELFPAY ==
[2021-06-18 00:10] VITALS: BP 138/89; PULSE 101; RESP 20; TEMP 36.5; BMI 32.3
[2021-06-20 08:39] VITALS: BP 135/103; PULSE 106; RESP 18; TEMP 36.5; BMI 32.3
--- NOTE | 2021-06-20 11:52 | PCM.WC.PN ---
History of Present Illness Date of Service: 06/20/21 Chief Complaint: Wound right medial ankle History of Wound: This is a 65-year-old male who presents with a wound to the right medial ankle just distal to the malleoli secondary to rupture of a varicose vein complicated by smoking and venous insufficiency and edema. He states that he has been dealing with this wound for a few months and has been applying topical lidocaine for pain control. His family physician has recommended compression stockings and he states that he tries to wear them but states they are too painful and cannot continue to wear them for the duration of the day. He states he can only last a few hours in them. He states that the site is painful and has shown very little progression. His family physician has referred him to the wound care center to continue his treatment. He denies any weeping to the wound site. He denies any nausea, vomiting, fever, chills, or shortness of breath or other constitutional symptoms. Subjective Subjective This is a 65-year-old male who presents to the wound care center for follow-up of ulceration right medial ankle secondary to chronic venous insufficiency, and ruptured varicose vein. Patient denies any nausea, vomiting, fever, chills, shortness of breath, or other contusional symptoms. He states that he continues to wear the shoe with a cut out the side on his right shoe so that it does not rub against his ulceration site which causes him pain. He states this is helping him. He states he is applying the hydrogel to the wound site and continuing to elevate his legs when at rest. He states that he has compression stockings and is wearing them again. He has no other complaints. Objective Data Objective Data Vital Signs: Vital Signs Temp Pulse Resp BP 97.7 F L 106 H 18 135/103 H 06/20/21 08:39 06/20/21 08:39 06/20/21 08:39 06/20/21 08:39 Weight: 90.718 kg Body Mass Index (BMI) 32.3 Physical Exam Const alert, oriented x3 and no apparent distress General Appearance: cooperative and comfortable HEENT normocephalic Eyes General Eye: normal appearance of both eyes Neck General: normal visual inspection Lymph Lymphatic: no lymphadenopathy noted and no lymphedema noted Chest inspection of chest normal Resp normal respiratory effort Cardio regular rate and regular rhythm Skin Skin Narrative: Skin is intact, soft and supple to palpation with normal skin turgor. Right lower extremity wound is noted just distal to the medial malleolus with mixed fibrous granular tissue base and puckered skin margins with surrounding rubor, which is decreasing, and hemosiderin deposition secondary to chronic venous insufficiency. Localized edema about the site is resolving. Wound demonstrates no localized erythema, purulent drainage, malodor, proximal streaking, or other localized signs of infection. There is no drainage to the wound base or from the wound. There are varicosities noted along the medial ankle and medial foot. Neuro oriented x3 and moves all extremities Motor Exam: strength 5/5 throughout Debridement Note Debridement Note Wound debrided: Right medial ankle Laterality: Right Wound Grade/Stage: Lovell stage I Type of Debridement: Excisional debridement Anesthesia Used: 5% Lidocaine Gel and Cetacaine Depth: in the subcutaneous layer Percentage of wound debrided: 100 Instrument Used: - (1 mm curette) Tissue Removed: Fibrous, devitalized subcutaneous, biofilm, slough Severity: Fat Layer Exposed Amount of bleeding with debridement: Mild Bleeding Controlled with: Pressure Patient tolerated procedure: Patient tolerated procedure well Post-Debridement Measurements and Additional Note: Post-Debridement Measurements/Treatment - Nurse 1 - General Ulcer Assessment Start: 06/20/21 08:39 Freq: Status: Active Protocol: KALI Activity Type Activity Date Activity User E-Sign Co-Sign Detail Recorded Client Recorded Date Recorded By Document 06/20/21 08:39 KYLIE [id number] 06/20/21 08:49 Edit Result 06/20/21 08:39 KYLIE (1) [id number] 06/20/21 08:53 KYLIE (1) Blood Pressure (90/60-120/80) 160/118 H => 135/103 H Blood Pressure Mean (mm Hg) 132 => 113 06/20/21 08:39 - Today's Visit Information Type of service Follow-up Visit (Physician/RETAIL 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 ) Arrival Mode Ambulatory Patient Identification Verified (Name & Yes ) Patient Requires Transmission-Based No Precautions Height and Weight Body Mass Index (BMI) 32.3 BMI Classification Obese Vital Signs Temperature (97.8 F-99.1 F) 97.7 F L Temperature Source Temporal Pulse Rate (60-100) 106 H Pulse Location Monitor Respiratory Rate (12-18) 18 Blood Pressure (90/60-120/80) 135/103 H Blood Pressure Mean (mm Hg) 113 Source Monitor Position Semi-Fowlers Blood Pressure Location Left Arm History Since Last Visit- (Skip if this is Patient's initial visit) Have you changed medications since your No last visit? Any new allergies or adverse reactions No Had a fall/change in ADL's that may No increase risk of falls Signs or symptoms of abuse and/or No neglect since last visit Have you been in the hospital since your No last visit? Has dressing in place as prescribed Yes Has compression in place as prescribed Yes Has offloadiing in place as prescribed N/A Experienced any changes in pain level or No management Left Footwear Regular Shoe Right Footwear Regular Shoe Pain Scale: 0-10 Numeric Is Patient Pain Free? Yes PINEDA - Nurse 1 - General Ulcer Measurement Start: 06/20/21 08:39 Freq: Status: Active Protocol: Activity Type Activity Date Activity User E-Sign Co-Sign Detail Recorded Client Recorded Date Recorded By Document 06/20/21 08:39 [id number] 06/20/21 08:49 KYLIE 06/20/21 08:39 Wound Center Nurse 1 1-right medial ankle ulcer -Combined with other wound No -Current Size (cm) - Length 0.3 -Current Size (cm) - Width 0.3 -Current Size (cm) - Depth 0.1 -Total Square Cm 0.09 -Photo Taken Yes -Epithelialization Small 1-33% -Tunneling No -Undermining/Tunneling No -Circular Undermining No -Exudate Type Serosanguineous -Wound Margin Flat & Intact -Granulation Amt Small (1-33%) -Granulation [place] -Slough/Fibrin Yes -Necrosis Amt Small (1-33%) -Structure Exposed N/A -Texture (Марина-wound Skin Appearance) Assessed, Localized Edema -Moisture (Марина-wound Skin Appearance) Assessed -Color (Марина-wound Skin Appearance) Assessed, Hemosiderin Staining -Foul Odor after Cleansing No -Anesthetic Used 4% Lidocaine Solution Lower Limb Edema Present Yes Right Calf (cm) 39.8 Right Ankle (cm) 23.4 PINEDA - Nurse 3 - General Ulcer D/C NN Start: 06/20/21 08:39 Freq: Status: Active Protocol: Activity Type Activity Date Activity User E-Sign Co-Sign Detail Recorded Client Recorded Date Recorded By Document 06/20/21 09:17 ARY [id number] 06/20/21 09:18 ARY 06/20/21 09:17 Wound Care Nurse 3 1-right medial ankle ulcer -Ulcer Cleansing Rinsed/ Irrigated with Saline -Foul Odor after Cleansing No -Primary Dressing Applied Promogran Vidhi Matter -Primary Dressing Covered/Secured with Dry Gauze, Secured with Tape -Promogran Vidhi Matter 1 Pain Scale: 0-10 Numeric Is Patient Pain Free? No WC - Visit Discharge Discharge Condition Stable Transportation Private Auto Medication Reconcilliation completed & Yes provided to patient/care provider Clinical Summary of Care Provided Yes Assessment/Plan Assessment/Plan (1) Non-pressure chronic ulcer of right ankle with fat layer exposed: CODE(S): L97.312 - Non-pressure chronic ulcer of right ankle with fat layer exposed (2) Varicose veins of lower extremity with pain: CODE(S): I83.819 - Varicose veins of unspecified lower extremity with pain (3) Pain in right ankle and joints of right foot: CODE(S): M25.571 - Pain in right ankle and joints of right foot (4) Edema of lower extremity due to peripheral venous insufficiency: CODE(S): I87.2 - Venous insufficiency (chronic) (peripheral) (5) Radiculopathy, lumbar region: CODE(S): M54.16 - Radiculopathy, lumbar region (6) H/O acute gouty arthritis: CODE(S): Z87.39 - Personal history of other diseases of the musculoskeletal system and connective tissue PLAN: This is a 65-year-old male who presents to the wound care center for a right medial ankle wound secondary to chronic venous insufficiency. He has a history of gout and radiculopathy of the lumbar region. He has tried to wear compression stockings but states that he could only tolerate them for a few hours and at the end of the work shift his legs hurt and he has to remove them. He was followed by his primary physician care physician for this wound but states it had made little progress. He had previously tried topical lidocaine to control the pain and states that he previously had an incident where he passed out, likely due to topical lidocaine absorption. Patient states today that he is able to now wear his compression stockings with very little discomfort or pain. He notices the ulceration site is less painful and is starting to close over. Ulceration right medial ankle distal to the medial malleolus was anesthetized with a topical 5% lidocaine gel and Cetacaine and sharply debrided with a 1 mm curette to patient tolerance. Debridement was performed removing fibrous, devitalized subcutaneous, biofilm, slough. Ulceration demonstrates continued reduction in size and the surrounding rubor has resolved along with his localized edema to the right lower extremity. He states that he has very little pain with this ulceration site, and only cites minimal pain after debridement. He is very pleased with his continued reduction in ulceration size. Ulceration site dressed with Vidhi, hydrogel, dry sterile dressing. Patient to continue to wear his compression stockings. He voices understanding of this. I discussed with him to continue to elevate lower extremities at times of rest and continue to wear his compression stockings full-time. I discussed with him that it is essential to be compliant in the use of the compression stockings to promote wound healing, discourage further edema, and ulcerative wounds secondary to his chronic venous insufficiency. He voices understanding of this. I discussed with him that he is to continue to change the dressings daily consisting of Vidhi and hydrogel to the site and dressing with clean sterile dry dressings. I discussed with him that he is to monitor for any localized signs of redness or redness that may spread up the leg, purulent drainage, malodor, increasing pain that is not controlled by [id number] pain medications, or if he experiences any fever, nausea, vomiting, or chills that he is to report to the emergency department as these are signs of progressing infection. Patient voices understanding of this. I reviewed and discussed his case today. Debridement was performed today as noted in the clinical panel to all of the ulcer sites. The following work up and care recommendations were made: Dressing: Vidhi and hydrogel Wash: Soap and water. He may pat the site dry Tissue growth optimization: Vidhi Offload: Compression via compression stockings Vascular: Vascular status intact with palpable pedal pulses Edema: Patient to wear compression stockings and elevate lower extremities to control edema Infection: No localized signs of infection Pain: Patient may take [id number] Tylenol extra strength and alternate with Motrin Host factors: Chronic venous insufficiency I answered all the patient's questions. To return to the wound healing center in 1 week or call sooner if the patient has any questions or concerns. Note: [employer] speech recognition kitchen bath designer software was used to create portions of this document. Sound-alike and misspelled words, as well as other kitchen bath designer errors may be contained in the documentation.
[2021-06-27 08:44] VITALS: BP 150/90; PULSE 101; TEMP 36.1; BMI 32.3
--- NOTE | 2021-06-27 09:09 | PN.PCM_ITS ---
History of Present Illness Date of Service: 06/27/21 Chief Complaint: Wound right medial ankle History of Wound: This is a 65-year-old male who presents with a wound to the right medial ankle just distal to the malleoli secondary to rupture of a varicose vein complicated by smoking and venous insufficiency and edema. He states that he has been dealing with this wound for a few months and has been applying topical lidocaine for pain control. His family physician has recommended compression stockings and he states that he tries to wear them but states they are too painful and cannot continue to wear them for the duration of the day. He states he can only last a few hours in them. He states that the site is painful and has shown very little progression. His family physician has referred him to the wound care center to continue his treatment. He denies any weeping to the wound site. He denies any nausea, vomiting, fever, chills, or shortness of breath or other constitutional symptoms. Subjective Subjective This is a 65-year-old male who presents to the wound care center for follow-up of ulceration right medial ankle secondary to chronic venous insufficiency, and ruptured varicose vein. Patient denies any nausea, vomiting, fever, chills, shortness of breath, or other contusional symptoms. He states that he continues to wear the shoe with a cut out the side on his right shoe so that it does not rub against his ulceration site which causes him pain. He states this is helping him. He states he is applying the hydrogel and Vidhi to the wound site and continuing to elevate his legs when at rest. He states that he has compression stockings and is wearing them again. He has no other complaints. Objective Data Objective Data Vital Signs: Vital Signs Temp Pulse Resp BP 97.0 F L 101 H 18 150/90 H 06/27/21 08:44 06/27/21 08:44 06/20/21 08:39 06/27/21 08:44 Weight: 90.718 kg Body Mass Index (BMI) 32.3 Physical Exam Const alert, oriented x3 and no apparent distress General Appearance: cooperative and comfortable HEENT normocephalic Eyes General Eye: normal appearance of both eyes Neck General: normal visual inspection Lymph Lymphatic: no lymphadenopathy noted and no lymphedema noted Chest inspection of chest normal Resp normal respiratory effort Cardio regular rate and regular rhythm Skin Skin Narrative: Skin is intact, soft and supple to palpation with normal skin turgor. Right lower extremity wound is noted just distal to the medial malleolus with mixed fibrous granular tissue base and puckered skin margins with surrounding rubor, which is decreasing, and hemosiderin deposition secondary to chronic venous insufficiency. Localized edema about the site is resolving. Wound demonstrates no localized erythema, purulent drainage, malodor, proximal streaking, or other localized signs of infection. There is no drainage to the wound base or from the wound. There are varicosities noted along the medial ankle and medial foot. Neuro oriented x3 and moves all extremities Motor Exam: strength 5/5 throughout Debridement Note Debridement Note Wound debrided: Medial ankle inferior to malleoli Laterality: Right Wound Grade/Stage: Lovell stage I Type of Debridement: Excisional debridement Anesthesia Used: 5% Lidocaine Gel Depth: in the subcutaneous layer Percentage of wound debrided: 100 Instrument Used: - (1 mm curette) Tissue Removed: Fibrous, devitalized subcutaneous, biofilm, slough Severity: Fat Layer Exposed Amount of bleeding with debridement: Mild Bleeding Controlled with: Pressure Patient tolerated procedure: Patient tolerated procedure well Post-Debridement Measurements and Additional Note: Post-Debridement Measurements/Treatment - Nurse 1 - General Ulcer Assessment Start: 06/20/21 08:39 Freq: Status: Active Protocol: KALI Activity Type Activity Date Activity User E-Sign Co-Sign Detail Recorded Client Recorded Date Recorded By Document 06/20/21 08:39 [id number] 06/20/21 08:49 JF Edit Result 06/20/21 08:39 KYLIE (1) [id number] 06/20/21 08:53 JF Document 06/27/21 08:44 KR [id number] 06/27/21 08:45 KR (1) Blood Pressure (90/60-120/80) 160/118 H => 135/103 H Blood Pressure Mean (mm Hg) 132 => 113 06/20/21 06/27/21 08:39 08:44 - Today's Visit Information Type of service Follow-up Visit Follow-up Visit (Physician/[facility] [employer] [facility] (Physician/[facility] [employer] [facility] ) ) Arrival Mode Ambulatory Ambulatory Patient Identification Verified (Name & Yes Yes ) Patient Requires Transmission-Based No Precautions Height and Weight Body Mass Index (BMI) 32.3 32.3 BMI Classification Obese Obese Vital Signs Temperature (97.8 F-99.1 F) 97.7 F L 97.0 F L Temperature Source Temporal Temporal Pulse Rate (60-100) 106 H 101 H Pulse Location Monitor Monitor Respiratory Rate (12-18) 18 Blood Pressure (90/60-120/80) 135/103 H 150/90 H Blood Pressure Mean (mm Hg) 113 110 Source Monitor Monitor Position Semi-Fowlers Sitting Blood Pressure Location Left Arm Right Arm History Since Last Visit- (Skip if this is Patient's initial visit) Have you changed medications since your No No last visit? Any new allergies or adverse reactions No No Had a fall/change in ADL's that may No No increase risk of falls Signs or symptoms of abuse and/or No No neglect since last visit Have you been in the hospital since your No No last visit? Has dressing in place as prescribed Yes Yes Has compression in place as prescribed Yes Yes Has offloadiing in place as prescribed N/A N/A Experienced any changes in pain level or No No management Left Footwear Regular Shoe Regular Shoe Right Footwear Regular Shoe Regular Shoe Pain Scale: 0-10 Numeric Is Patient Pain Free? Yes Yes WC - Nurse 1 - General Ulcer Measurement Start: 06/20/21 08:39 Freq: Status: Active Protocol: Activity Type Activity Date Activity User E-Sign Co-Sign Detail Recorded Client Recorded Date Recorded By Document 06/20/21 08:39 [id number] 06/20/21 08:49 Document 06/27/21 08:44 KR [id number] 06/27/21 08:45 KR 06/20/21 06/27/21 08:39 08:44 Wound Center Nurse 1 1-right medial ankle ulcer -Combined with other wound No -Current Size (cm) - Length 0.3 0.1 -Current Size (cm) - Width 0.3 0.1 -Current Size (cm) - Depth 0.1 0.1 -Total Square Cm 0.09 0.01 -Photo Taken Yes -Epithelialization Small 1-33% -Tunneling No -Undermining/Tunneling No -Circular Undermining No -Exudate Type Serosanguineous -Wound Margin Flat & Intact -Granulation Amt Small (1-33%) -Granulation Quality Faith -Slough/Fibrin Yes -Necrosis Amt Small (1-33%) -Structure Exposed N/A -Texture (Марина-wound Skin Appearance) Assessed, Localized Edema -Moisture (Марина-wound Skin Appearance) Assessed -Color (Марина-wound Skin Appearance) Assessed, Hemosiderin Staining -Foul Odor after Cleansing No -Anesthetic Used 4% Lidocaine Solution Lower Limb Edema Present Yes Right Calf (cm) 39.8 39.3 Right Ankle (cm) 23.4 23.6 WC - Nurse 2 - General Ulcer CM Notes Start: 06/20/21 08:39 Freq: Status: Active Protocol: Activity Type Activity Date Activity User E-Sign Co-Sign Detail Recorded Client Recorded Date Recorded By Document 06/20/21 12:38 PL [id number] 06/20/21 12:39 PL 06/20/21 12:38 Wound Center Nurse 2 1-right medial ankle ulcer -Time 09:03 -Correct Patient Yes -Correct Side, Site, Position Yes -Correct Procedure Yes -Procedure Performed Yes -Type of Procedure Debridement -Clinical Debridement Subcutaneous -Tissue Removed Subcutaneous -Post Debridement (cm) - Length 0.3 -Post Debridement (cm) - Width 0.3 -Post Debridement (cm) - Depth 0.1 -Total Square (Post) (cm) 0.09 -Area of Debridement (cm) - Length 0.3 -Area of Debridement (cm) - Width 0.3 -Total Square (Area) (cm) 0.09 -Tunneling No -Undermining/Tunneling No -Circular Undermining No -Wound/Ulcer Outcome Not Healed -Ulcer Cleansing Rinsed/ Irrigated with Saline -Foul Odor after Cleansing No -Bioengineered Tissue No -Bleeding Controlled with Pressure -Treatment Response Procedure Tolerated Well -Debridement - Subq, 1st 20sq cm Yes Pain Scale: 0-10 Numeric Is Patient Pain Free? Yes - Nurse 3 - General Ulcer D/C NN Start: 06/20/21 08:39 Freq: Status: Active Protocol: Activity Type Activity Date Activity User E-Sign Co-Sign Detail Recorded Client Recorded Date Recorded By Document 06/20/21 09:17 AK [id number] 06/20/21 09:18 AK 06/20/21 09:17 Wound Care Nurse 3 1-right medial ankle ulcer -Ulcer Cleansing Rinsed/ Irrigated with Saline -Foul Odor after Cleansing No -Primary Dressing Applied Promogran Vidhi Matter -Primary Dressing Covered/Secured with Dry Gauze, Secured with Tape -Promogran Vidhi Matter 1 Pain Scale: 0-10 Numeric Is Patient Pain Free? No WC - Visit Discharge Discharge Condition Stable Transportation Private Auto Medication Reconcilliation completed & Yes provided to patient/care provider Clinical Summary of Care Provided Yes Assessment/Plan Assessment/Plan (1) Non-pressure chronic ulcer of right ankle with fat layer exposed: CODE(S): L97.312 - Non-pressure chronic ulcer of right ankle with fat layer exposed (2) Varicose veins of lower extremity with pain: CODE(S): I83.819 - Varicose veins of unspecified lower extremity with pain (3) Pain in right ankle and joints of right foot: CODE(S): M25.571 - Pain in right ankle and joints of right foot (4) Edema of lower extremity due to peripheral venous insufficiency: CODE(S): I87.2 - Venous insufficiency (chronic) (peripheral) (5) Radiculopathy, lumbar region: CODE(S): M54.16 - Radiculopathy, lumbar region (6) H/O acute gouty arthritis: CODE(S): Z87.39 - Personal history of other diseases of the musculoskeletal system and connective tissue PLAN: This is a 65-year-old male who presents to the wound care center for a right medial ankle wound secondary to chronic venous insufficiency. He has a history of gout and radiculopathy of the lumbar region. He has tried to wear compression stockings but states that he could only tolerate them for a few hours and at the end of the work shift his legs hurt and he has to remove them. He was followed by his primary physician care physician for this wound but states it had made little progress. He had previously tried topical lidocaine to control the pain and states that he previously had an incident where he passed out, likely due to topical lidocaine absorption. Patient states he has been wearing his compression stockings with very little discomfort or pain. He notices the ulceration site is less painful and is starting to close over. Ulceration right medial ankle distal to the medial malleolus was anesthetized with a topical 5% lidocaine gel and Cetacaine and sharply debrided with a 1 mm curette to patient tolerance. Debridement was performed removing fibrous, devitalized subcutaneous, biofilm, slough. Ulceration demonstrates continued reduction in size closing at the most inferior portion and the surrounding rubor has resolved along with his localized edema to the right lower extremity. He states that he has very little pain with this ulceration site, and only cites minimal pain after debridement. He is very pleased with his continued reduction in ulceration size. Ulceration site dressed with Vidih, hydrogel, dry sterile dressing. Patient to continue to wear his compression stockings. He voices understanding of this. I discussed with him to continue to elevate lower extremities at times of rest and continue to wear his compression stockings full-time. I discussed with him that it is essential to be compliant in the use of the compression stockings to promote wound healing, discourage further edema, and ulcerative wounds secondary to his chronic venous insufficiency. He voices understanding of this. I discussed with him that he is to continue to change the dressings daily consisting of Vidhi and hydrogel to the site and dressing with clean sterile dry dressings. I discussed with him that he is to monitor for any localized signs of redness or redness that may spread up the leg, purulent drainage, malodor, increasing pain that is not controlled by [id number] pain medications, or if he experiences any fever, nausea, vomiting, or chills that he is to report to the emergency department as these are signs of progressing infection. Patient voices understanding of this. I reviewed and discussed his case today. Debridement was performed today as noted in the clinical panel to all of the ulcer sites. The following work up and care recommendations were made: Dressing: Vidhi and hydrogel Wash: Soap and water. He may pat the site dry Tissue growth optimization: Vidhi Offload: Compression via compression stockings Vascular: Vascular status intact with palpable pedal pulses Edema: Patient to wear compression stockings and elevate lower extremities to control edema Infection: No localized signs of infection Pain: Patient may take [id number] Tylenol extra strength and alternate with Motrin Host factors: Chronic venous insufficiency I answered all the patient's questions. To return to the wound healing center in 1 week or call sooner if the patient has any questions or concerns. Note: [employer] speech recognition waterway traffic checker software was used to create portions of this document. Sound-alike and misspelled words, as well as other waterway traffic checker errors may be contained in the documentation.
--- NOTE | 2021-07-04 09:39 | PCM.WC.PN ---
History of Present Illness Date of Service: 07/04/21 Chief Complaint: Wound right medial ankle History of Wound: This is a 65-year-old male who presents with a wound to the right medial ankle just distal to the malleoli secondary to rupture of a varicose vein complicated by smoking and venous insufficiency and edema. He states that he has been dealing with this wound for a few months and has been applying topical lidocaine for pain control. His family physician has recommended compression stockings and he states that he tries to wear them but states they are too painful and cannot continue to wear them for the duration of the day. He states he can only last a few hours in them. He states that the site is painful and has shown very little progression. His family physician has referred him to the wound care center to continue his treatment. He denies any weeping to the wound site. He denies any nausea, vomiting, fever, chills, or shortness of breath or other constitutional symptoms. Subjective Subjective This is a 65-year-old male who presents to the wound care center for follow-up of ulceration right medial ankle secondary to chronic venous insufficiency, and ruptured varicose vein. Patient denies any nausea, vomiting, fever, chills, shortness of breath, or other constitutional symptoms. He states that he continues to wear the shoe with a cut out the side on his right shoe so that it does not rub against his ulceration site which causes him pain. He states this is helping him. He states he is applying the hydrogel and Vidhi to the wound site and continuing to elevate his legs when at rest. He states that he has compression stockings and is wearing them again. He continues to state that he has minimal pain and is very pleased with his healing progress and feels his wound is almost closed. He has no other complaints. Objective Data Objective Data Vital Signs: Vital Signs Temp Pulse Resp BP 97.0 F L 101 H 18 150/90 H 06/27/21 08:44 06/27/21 08:44 06/20/21 08:39 06/27/21 08:44 Weight: 90.718 kg Body Mass Index (BMI) 32.3 Physical Exam Const alert, oriented x3 and no apparent distress General Appearance: cooperative and comfortable HEENT normocephalic Eyes General Eye: normal appearance of both eyes Neck General: normal visual inspection Lymph Lymphatic: no lymphadenopathy noted and no lymphedema noted Chest inspection of chest normal Resp normal respiratory effort Cardio regular rate and regular rhythm Skin Skin Narrative: Skin is intact, soft and supple to palpation with normal skin turgor. Right lower extremity wound is noted just distal to the medial malleolus with mixed fibrous granular tissue base and puckered skin margins with surrounding rubor, which is decreasing, and hemosiderin deposition secondary to chronic venous insufficiency. Localized edema about the site is resolving. Wound demonstrates no localized erythema, purulent drainage, malodor, proximal streaking, or other localized signs of infection. There is no drainage to the wound base or from the wound. There are varicosities noted along the medial ankle and medial foot. Neuro oriented x3 and moves all extremities Motor Exam: strength 5/5 throughout Debridement Note Debridement Note Wound debrided: Right medial ankle Laterality: Right Wound Grade/Stage: [place] stage I Type of Debridement: Excisional debridement Anesthesia Used: 5% Lidocaine Gel and Cetacaine Depth: in the subcutaneous layer Percentage of wound debrided: 100 Instrument Used: - (1 mm curette) Tissue Removed: Fibrous, devitalized subcutaneous, biofilm, slough Severity: Fat Layer Exposed Amount of bleeding with debridement: Mild Bleeding Controlled with: Pressure Patient tolerated procedure: Patient tolerated procedure well Post-Debridement Measurements and Additional Note: Post-Debridement Measurements/Treatment - Nurse 1 - General Ulcer Assessment Start: 06/20/21 08:39 Freq: Status: Active Protocol: KALI Activity Type Activity Date Activity User E-Sign Co-Sign Detail Recorded Client Recorded Date Recorded By Document 06/20/21 08:39 KYLIE [id number] 06/20/21 08:49 JF Edit Result 06/20/21 08:39 JF (1) [id number] 06/20/21 08:53 JF Document 06/27/21 08:44 KR [id number] 06/27/21 08:45 KR (1) Blood Pressure (90/60-120/80) 160/118 H => 135/103 H Blood Pressure Mean (mm Hg) 132 => 113 06/20/21 06/27/21 08:39 08:44 - Today's Visit Information Type of service Follow-up Visit Follow-up Visit (Physician/TILE ROOFER (Physician/TILE ROOFER ) ) Arrival Mode Ambulatory Ambulatory Patient Identification Verified (Name & Yes Yes ) Patient Requires Transmission-Based No Precautions Height and Weight Body Mass Index (BMI) 32.3 32.3 BMI Classification Obese Obese Vital Signs Temperature (97.8 F-99.1 F) 97.7 F L 97.0 F L Temperature Source Temporal Temporal Pulse Rate (60-100) 106 H 101 H Pulse Location Monitor Monitor Respiratory Rate (12-18) 18 Blood Pressure (90/60-120/80) 135/103 H 150/90 H Blood Pressure Mean (mm Hg) 113 110 Source Monitor Monitor Position Semi-Fowlers Sitting Blood Pressure Location Left Arm Right Arm History Since Last Visit- (Skip if this is Patient's initial visit) Have you changed medications since your No No last visit? Any new allergies or adverse reactions No No Had a fall/change in ADL's that may No No increase risk of falls Signs or symptoms of abuse and/or No No neglect since last visit Have you been in the hospital since your No No last visit? Has dressing in place as prescribed Yes Yes Has compression in place as prescribed Yes Yes Has offloadiing in place as prescribed N/A N/A Experienced any changes in pain level or No No management Left Footwear Regular Shoe Regular Shoe Right Footwear Regular Shoe Regular Shoe Pain Scale: 0-10 Numeric Is Patient Pain Free? Yes Yes - Nurse 1 - General Ulcer Measurement Start: 06/20/21 08:39 Freq: Status: Active Protocol: Activity Type Activity Date Activity User E-Sign Co-Sign Detail Recorded Client Recorded Date Recorded By Document 06/20/21 08:39 [id number] 06/20/21 08:49 Document 06/27/21 08:44 KR [id number] 06/27/21 08:45 KR 06/20/21 06/27/21 08:39 08:44 Wound Center Nurse 1 1-right medial ankle ulcer -Combined with other wound No -Current Size (cm) - Length 0.3 0.1 -Current Size (cm) - Width 0.3 0.1 -Current Size (cm) - Depth 0.1 0.1 -Total Square Cm 0.09 0.01 -Photo Taken Yes -Epithelialization Small 1-33% -Tunneling No -Undermining/Tunneling No -Circular Undermining No -Exudate Type Serosanguineous -Wound Margin Flat & Intact -Granulation Amt Small (1-33%) -Granulation Quality [place] -Slough/Fibrin Yes -Necrosis Amt Small (1-33%) -Structure Exposed N/A -Texture (Марина-wound Skin Appearance) Assessed, Localized Edema -Moisture (Марина-wound Skin Appearance) Assessed -Color (Марина-wound Skin Appearance) Assessed, Hemosiderin Staining -Foul Odor after Cleansing No -Anesthetic Used 4% Lidocaine Solution Lower Limb Edema Present Yes Right Calf (cm) 39.8 39.3 Right Ankle (cm) 23.4 23.6 - Nurse 2 - General Ulcer CM Notes Start: 06/20/21 08:39 Freq: Status: Active Protocol: Activity Type Activity Date Activity User E-Sign Co-Sign Detail Recorded Client Recorded Date Recorded By Document 06/20/21 12:38 PL [id number] 06/20/21 12:39 PL Document 06/27/21 12:53 PL [id number] 06/27/21 12:55 PL 06/20/21 06/27/21 12:38 12:53 Wound Center Nurse 2 1-right medial ankle ulcer -Time 09:03 09:12 -Correct Patient Yes Yes -Correct Side, Site, Position Yes Yes -Correct Procedure Yes Yes -Procedure Performed Yes Yes -Type of Procedure Debridement Debridement -Clinical Debridement Subcutaneous Subcutaneous -Tissue Removed Subcutaneous Subcutaneous -Post Debridement (cm) - Length 0.3 0.2 -Post Debridement (cm) - Width 0.3 0.2 -Post Debridement (cm) - Depth 0.1 0.1 -Total Square (Post) (cm) 0.09 0.04 -Area of Debridement (cm) - Length 0.3 0.2 -Area of Debridement (cm) - Width 0.3 0.2 -Total Square (Area) (cm) 0.09 0.04 -Tunneling No No -Undermining/Tunneling No No -Circular Undermining No No -Wound/Ulcer Outcome Not Healed Not Healed -Ulcer Cleansing Rinsed/ Rinsed/ Irrigated with Irrigated with Saline Saline -Foul Odor after Cleansing No No -Bioengineered Tissue No No -Bleeding Controlled with Pressure Pressure -Treatment Response Procedure Procedure Tolerated Well Tolerated Well -Debridement - Subq, 1st 20sq cm Yes Yes Pain Scale: 0-10 Numeric Is Patient Pain Free? Yes Yes - Nurse 3 - General Ulcer D/C NN Start: 06/20/21 08:39 Freq: Status: Active Protocol: Activity Type Activity Date Activity User E-Sign Co-Sign Detail Recorded Client Recorded Date Recorded By Document 06/20/21 09:17 MI [id number] 06/20/21 09:18 AK Document 06/27/21 09:48 DIANNA [id number] 06/27/21 09:49 KR 06/20/21 06/27/21 09:17 09:48 Wound Care Nurse 3 1-right medial ankle ulcer -Ulcer Cleansing Rinsed/ Rinsed/ Irrigated with Irrigated with Saline Saline -Foul Odor after Cleansing No -Primary Dressing Applied Promogran Promogran Vidhi Matter Vidhi Matter -Primary Dressing Covered/Secured with Dry Gauze, Dry Gauze, Secured with Secured with Tape Tape -Promogran Vidhi Matter 1 1 Pain Scale: 0-10 Numeric Is Patient Pain Free? No Yes WC - Visit Discharge Discharge Condition Stable Stable Ambulatory Status Ambulatory Transportation Private Auto Private Auto Medication Reconcilliation completed & Yes No provided to patient/care provider Clinical Summary of Care Provided Yes No Assessment/Plan Assessment/Plan (1) Non-pressure chronic ulcer of right ankle with fat layer exposed: CODE(S): L97.312 - Non-pressure chronic ulcer of right ankle with fat layer exposed (2) Varicose veins of lower extremity with pain: CODE(S): I83.819 - Varicose veins of unspecified lower extremity with pain (3) Pain in right ankle and joints of right foot: CODE(S): M25.571 - Pain in right ankle and joints of right foot (4) Edema of lower extremity due to peripheral venous insufficiency: CODE(S): I87.2 - Venous insufficiency (chronic) (peripheral) (5) Radiculopathy, lumbar region: CODE(S): M54.16 - Radiculopathy, lumbar region (6) H/O acute gouty arthritis: CODE(S): Z87.39 - Personal history of other diseases of the musculoskeletal system and connective tissue PLAN: This is a 65-year-old male who presents to the wound care center for a right medial ankle wound secondary to chronic venous insufficiency. He has a history of gout and radiculopathy of the lumbar region. He has tried to wear compression stockings but states that he could only tolerate them for a few hours and at the end of the work shift his legs hurt and he has to remove them. He was followed by his primary physician care physician for this wound but states it had made little progress. He had previously tried topical lidocaine to control the pain and states that he previously had an incident where he passed out, likely due to topical lidocaine absorption. Patient states he has continuing to wear compression stockings with very little discomfort or pain. He notices the ulceration site is less painful and is almost closed over. Ulceration right medial ankle distal to the medial malleolus was anesthetized with a topical 5% lidocaine gel and Cetacaine and sharply debrided with a 1 mm curette to patient tolerance. Debridement was performed removing fibrous, devitalized subcutaneous, biofilm, slough. Ulceration demonstrates continued reduction in size closing at the most inferior portion and the surrounding rubor has resolved along with his localized edema to the right lower extremity. He states that he has very little pain with this ulceration site, and only cites minimal pain after debridement. He is very pleased with his continued reduction in ulceration size. Ulceration site dressed with Vidhi, hydrogel, dry sterile dressing. Patient to continue to wear his compression stockings. He voices understanding of this. He is continuing to make good progress and the wound is continuing to decrease in size and is almost completely closed over. I discussed with him to continue to elevate lower extremities at times of rest and continue to wear his compression stockings full-time. I discussed with him that it is essential to be compliant in the use of the compression stockings to promote wound healing, discourage further edema, and ulcerative wounds secondary to his chronic venous insufficiency. He voices understanding of this. I discussed with him that he is to continue to change the dressings daily consisting of Vidhi and hydrogel to the site and dressing with clean sterile dry dressings. I discussed with him that he is to monitor for any localized signs of redness or redness that may spread up the leg, purulent drainage, malodor, increasing pain that is not controlled by [id number] pain medications, or if he experiences any fever, nausea, vomiting, or chills that he is to report to the emergency department as these are signs of progressing infection. Patient voices understanding of this. I reviewed and discussed his case today. Debridement was performed today as noted in the clinical panel to all of the ulcer sites. The following work up and care recommendations were made: Dressing: Vidhi and hydrogel Wash: Soap and water. He may pat the site dry Tissue growth optimization: Vidhi Offload: Compression via compression stockings Vascular: Vascular status intact with palpable pedal pulses Edema: Patient to wear compression stockings and elevate lower extremities to control edema Infection: No localized signs of infection Pain: Patient may take [id number] Tylenol extra strength and alternate with Motrin Host factors: Chronic venous insufficiency I answered all the patient's questions. To return to the wound healing center in 1 week or call sooner if the patient has any questions or concerns. Note: [employer] speech recognition auger mill operator software was used to create portions of this document. Sound-alike and misspelled words, as well as other auger mill operator errors may be contained in the documentation.
[2021-07-04 09:43] VITALS: BP 149/86; PULSE 89; TEMP 36.2; BMI 32.3
[2021-07-11 08:59] VITALS: BP 158/96; PULSE 93; RESP 18; TEMP 35.9; BMI 32.3
--- NOTE | 2021-07-11 10:21 | PN.PCM_ITS ---
History of Present Illness Date of Service: 07/11/21 Chief Complaint: Wound right medial ankle History of Wound: This is a 65-year-old male who presents with a wound to the right medial ankle just distal to the malleoli secondary to rupture of a varicose vein complicated by smoking and venous insufficiency and edema. He states that he has been dealing with this wound for a few months and has been applying topical lidocaine for pain control. His family physician has recommended compression stockings and he states that he tries to wear them but states they are too painful and cannot continue to wear them for the duration of the day. He states he can only last a few hours in them. He states that the site is painful and has shown very little progression. His family physician has referred him to the wound care center to continue his treatment. He denies any weeping to the wound site. He denies any nausea, vomiting, fever, chills, or shortness of breath or other constitutional symptoms. Subjective Subjective This is a 65-year-old male who presents to the wound care center for follow-up of ulceration right medial ankle secondary to chronic venous insufficiency, and ruptured varicose vein. Patient denies any nausea, vomiting, fever, chills, shortness of breath, or other constitutional symptoms. He states that he continues to wear the shoe with a cut out the side on his right shoe so that it does not rub against his ulceration site which causes him pain. He states this is helping him. He states he is applying the hydrogel and Vidhi to the wound site and elevating his legs when at rest. He states that he has been wearing compression stockings. He states that he has no pain and is very pleased with his healing progress and feels his wound is about closed. He has no other complaints. Objective Data Objective Data Vital Signs: Vital Signs Temp Pulse Resp BP 96.6 F L 93 18 158/96 H 07/11/21 08:59 07/11/21 08:59 07/11/21 08:59 07/11/21 08:59 Weight: 90.718 kg Body Mass Index (BMI) 32.3 Physical Exam Const alert, oriented x3 and no apparent distress General Appearance: cooperative and comfortable HEENT normocephalic Eyes General Eye: normal appearance of both eyes Neck General: normal visual inspection Lymph Lymphatic: no lymphadenopathy noted and no lymphedema noted Chest inspection of chest normal Resp normal respiratory effort Cardio regular rate and regular rhythm Skin Skin Narrative: Skin is intact, soft and supple to palpation with normal skin turgor. Right lower extremity wound is noted just distal to the medial malleolus with mixed fibrous granular tissue base and puckered skin margins with surrounding rubor, which is decreasing, and hemosiderin deposition secondary to chronic venous insufficiency. Localized edema about the site is resolving. Wound demonstrates no localized erythema, purulent drainage, malodor, proximal streaking, or other localized signs of infection. There is no drainage to the wound base or from the wound. There are varicosities noted along the medial ankle and medial foot. Neuro oriented x3 and moves all extremities Motor Exam: strength 5/5 throughout Debridement Note Debridement Note Wound debrided: Right medial ankle Laterality: Right Wound Grade/Stage: Lovell stage I Type of Debridement: Selective debridement Depth: Down to and including healthy tissue Percentage of wound debrided: 100 Instrument Used: - (Moistened gauze) Tissue Removed: Fibrous, devitalized subcutaneous, biofilm, slough Severity: Limited To Skin Breakdown Amount of bleeding with debridement: Mild Patient tolerated procedure: Patient tolerated procedure well Post-Debridement Measurements and Additional Note: Post-Debridement Measurements/Treatment - Nurse 1 - General Ulcer Assessment Start: 06/20/21 08:39 Freq: Status: Active Protocol: KALI Activity Type Activity Date Activity User E-Sign Co-Sign Detail Recorded Client Recorded Date Recorded By Document 06/20/21 08:39 [id number] 06/20/21 08:49 JF Edit Result 06/20/21 08:39 KYLIE (1) [id number] 06/20/21 08:53 JF Document 06/27/21 08:44 KR [id number] 06/27/21 08:45 KR Document 07/04/21 09:43 AK [id number] 07/04/21 09:45 AK Document 07/11/21 08:59 JF [id number] 07/11/21 09:04 JF (1) Blood Pressure (90/60-120/80) 160/118 H => 135/103 H Blood Pressure Mean (mm Hg) 132 => 113 06/20/21 06/27/21 07/04/21 08:39 08:44 09:43 - Today's Visit Information Type of service Follow-up Visit Follow-up Visit Follow-up Visit (Physician/SCHEDULER CONVEYOR (Physician/SCHEDULER CONVEYOR (Physician/SCHEDULER CONVEYOR ) ) ) Arrival Mode Ambulatory Ambulatory Ambulatory Patient Identification Verified (Name & Yes Yes Yes ) Patient Requires Transmission-Based No No Precautions Safety Precautions NA Height and Weight Body Mass Index (BMI) 32.3 32.3 32.3 BMI Classification Obese Obese Obese Vital Signs Temperature (97.8 F-99.1 F) 97.7 F L 97.0 F L 97.2 F L Temperature Source Temporal Temporal Temporal Pulse Rate (60-100) 106 H 101 H 89 Pulse Location Monitor Monitor Monitor Respiratory Rate (12-18) 18 Respiratory rate source Blood Pressure (90/60-120/80) 135/103 H 150/90 H 149/86 H Blood Pressure Mean (mm Hg) 113 110 107 Source Monitor Monitor Monitor Position Semi-Fowlers Sitting Blood Pressure Location Left Arm Right Arm History Since Last Visit- (Skip if this is Patient's initial visit) Have you changed medications since your No No No last visit? Any new allergies or adverse reactions No No No Had a fall/change in ADL's that may No No No increase risk of falls Signs or symptoms of abuse and/or No No No neglect since last visit Have you been in the hospital since your No No No last visit? Has dressing in place as prescribed Yes Yes Yes Has compression in place as prescribed Yes Yes N/A Has offloadiing in place as prescribed N/A N/A N/A Experienced any changes in pain level or No No management Left Footwear Regular Shoe Regular Shoe Regular Shoe Right Footwear Regular Shoe Regular Shoe Regular Shoe Pain Scale: 0-10 Numeric Is Patient Pain Free? Yes Yes Yes 07/11/21 08:59 - Today's Visit Information Type of service Follow-up Visit (Physician/SCHEDULER CONVEYOR ) Arrival Mode Ambulatory Patient Identification Verified (Name & Yes ) Patient Requires Transmission-Based No Precautions Safety Precautions Height and Weight Body Mass Index (BMI) 32.3 BMI Classification Obese Vital Signs Temperature (97.8 F-99.1 F) 96.6 F L Temperature Source Temporal Pulse Rate (60-100) 93 Pulse Location Monitor Respiratory Rate (12-18) 18 Respiratory rate source Observation Blood Pressure (90/60-120/80) 158/96 H Blood Pressure Mean (mm Hg) 116 Source Monitor Position Semi-Fowlers Blood Pressure Location Left Arm History Since Last Visit- (Skip if this is Patient's initial visit) Have you changed medications since your No last visit? Any new allergies or adverse reactions No Had a fall/change in ADL's that may No increase risk of falls Signs or symptoms of abuse and/or No neglect since last visit Have you been in the hospital since your No last visit? Has dressing in place as prescribed Yes Has compression in place as prescribed Yes Has offloadiing in place as prescribed Yes Experienced any changes in pain level or No management Left Footwear Regular Shoe Right Footwear Regular Shoe Pain Scale: 0-10 Numeric Is Patient Pain Free? Yes WC - Nurse 1 - General Ulcer Measurement Start: 06/20/21 08:39 Freq: Status: Active Protocol: Activity Type Activity Date Activity User E-Sign Co-Sign Detail Recorded Client Recorded Date Recorded By Document 06/20/21 08:39 [id number] 06/20/21 08:49 JF Document 06/27/21 08:44 KR [id number] 06/27/21 08:45 KR Document 07/04/21 09:43 AK [id number] 07/04/21 09:45 AK Document 07/11/21 08:59 JF [id number] 07/11/21 09:04 JF 06/20/21 06/27/21 07/04/21 08:39 08:44 09:43 Wound Center Nurse 1 1-right medial ankle ulcer -Combined with other wound No No -Current Size (cm) - Length 0.3 0.1 0.1 -Current Size (cm) - Width 0.3 0.1 0.1 -Current Size (cm) - Depth 0.1 0.1 0.1 -Total Square Cm 0.09 0.01 0.01 -Photo Taken Yes No -Epithelialization Small 1-33% -Tunneling No No -Undermining/Tunneling No -Circular Undermining No -Exudate Amt -Exudate Type Serosanguineous -Wound Margin Flat & Intact -Granulation Amt Small (1-33%) -Granulation Quality [place] -Slough/Fibrin Yes -Necrosis Amt Small (1-33%) -Necrotic Tissue Type -Structure Exposed N/A -Texture (Марина-wound Skin Appearance) Assessed, No Abnormality, Localized Edema Assessed -Moisture (Марина-wound Skin Appearance) Assessed No Abnormality, Assessed -Color (Марина-wound Skin Appearance) Assessed, No Abnormality, Hemosiderin Assessed Staining -Temperature (Марина-wound Skin No Abnormality Appearance) (Pt Warm) -Tenderness on Palpation (Марина-wound Skin Appearance) -Ulcer Cleansing Rinsed/ Irrigated with Saline -Foul Odor after Cleansing No -Anesthetic Used 4% Lidocaine 4% Lidocaine Solution Solution Lower Limb Edema Present Yes Right Calf (cm) 39.8 39.3 37.5 Right Ankle (cm) 23.4 23.6 23.5 07/11/21 08:59 Wound Center Nurse 1 1-right medial ankle ulcer -Combined with other wound No -Current Size (cm) - Length 0.1 -Current Size (cm) - Width 0.1 -Current Size (cm) - Depth 0.1 -Total Square Cm 0.01 -Photo Taken No -Epithelialization Large 67-100% -Tunneling No -Undermining/Tunneling No -Circular Undermining No -Exudate Amt None Present -Exudate Type -Wound Margin Flat & Intact -Granulation Amt None Present (0 %) -Granulation Quality -Slough/Fibrin -Necrosis Amt Small (1-33%) -Necrotic Tissue Type Adherent Slough -Structure Exposed N/A -Texture (Марина-wound Skin Appearance) Assessed -Moisture (Марина-wound Skin Appearance) Assessed,Dry/ Scaly -Color (Марина-wound Skin Appearance) Assessed -Temperature (Марина-wound Skin No Abnormality Appearance) (Pt Warm) -Tenderness on Palpation (Марина-wound No Skin Appearance) -Ulcer Cleansing Rinsed/ Irrigated with Saline -Foul Odor after Cleansing No -Anesthetic Used Lower Limb Edema Present Yes Right Calf (cm) 40.6 Right Ankle (cm) 23.3 WC - Nurse 2 - General Ulcer CM Notes Start: 06/20/21 08:39 Freq: Status: Active Protocol: Activity Type Activity Date Activity User E-Sign Co-Sign Detail Recorded Client Recorded Date Recorded By Document 06/20/21 12:38 PL [id number] 06/20/21 12:39 PL Document 06/27/21 12:53 PL [id number] 06/27/21 12:55 PL Document 07/04/21 14:48 PL [id number] 07/04/21 14:48 PL 06/20/21 06/27/21 07/04/21 12:38 12:53 14:48 Wound Center Nurse 2 1-right medial ankle ulcer -Time 09:03 09:12 09:16 -Correct Patient Yes Yes Yes -Correct Side, Site, Position Yes Yes Yes -Correct Procedure Yes Yes Yes -Procedure Performed Yes Yes Yes -Type of Procedure Debridement Debridement Debridement -Clinical Debridement Subcutaneous Subcutaneous Subcutaneous -Tissue Removed Subcutaneous Subcutaneous Subcutaneous -Post Debridement (cm) - Length 0.3 0.2 0.1 -Post Debridement (cm) - Width 0.3 0.2 0.1 -Post Debridement (cm) - Depth 0.1 0.1 0.1 -Total Square (Post) (cm) 0.09 0.04 0.01 -Area of Debridement (cm) - Length 0.3 0.2 0.1 -Area of Debridement (cm) - Width 0.3 0.2 0.1 -Total Square (Area) (cm) 0.09 0.04 0.01 -Tunneling No No No -Undermining/Tunneling No No No -Circular Undermining No No No -Wound/Ulcer Outcome Not Healed Not Healed Not Healed -Ulcer Cleansing Rinsed/ Rinsed/ Rinsed/ Irrigated with Irrigated with Irrigated with Saline Saline Saline -Foul Odor after Cleansing No No No -Bioengineered Tissue No No No -Bleeding Controlled with Pressure Pressure Pressure -Treatment Response Procedure Procedure Procedure Tolerated Well Tolerated Well Tolerated Well -Debridement - Subq, 1st 20sq cm Yes Yes Yes Pain Scale: 0-10 Numeric Is Patient Pain Free? Yes Yes Yes WC - Nurse 3 - General Ulcer D/C NN Start: 06/20/21 08:39 Freq: Status: Active Protocol: Activity Type Activity Date Activity User E-Sign Co-Sign Detail Recorded Client Recorded Date Recorded By Document 06/20/21 09:17 AK [id number] 06/20/21 09:18 AK Document 06/27/21 09:48 KR [id number] 06/27/21 09:49 KR Document 07/04/21 09:43 AK [id number] 07/04/21 09:45 AK Document 07/11/21 09:46 JF [id number] 07/11/21 09:47 JF 06/20/21 06/27/21 07/04/21 09:17 09:48 09:43 Wound Care Nurse 3 1-right medial ankle ulcer -Ulcer Cleansing Rinsed/ Rinsed/ Rinsed/ Irrigated with Irrigated with Irrigated with Saline Saline Saline -Foul Odor after Cleansing No No -Primary Dressing Applied Promogran Promogran C Hydrogel ($), Vidhi Matter Vidhi Matter Promogran Vidhi Matter -Primary Dressing Covered/Secured with Dry Gauze, Dry Gauze, Dry Gauze, Secured with Secured with Secured with Tape Tape Tape -Promogran Vidhi Matter 1 1 1 Right -Tubular Bandage -Size of Tubigrip Used -Size E ($) Vital Signs Temperature (97.8 F-99.1 F) 97.2 F L Temperature Source Temporal Pulse Rate (60-100) 89 Pulse Location Monitor Blood Pressure (90/60-120/80) 149/86 H Blood Pressure Mean (mm Hg) 107 Source Monitor Pain Scale: 0-10 Numeric Is Patient Pain Free? No Yes Yes WC - Visit Discharge Discharge Condition Stable Stable Ambulatory Status Ambulatory Transportation Private Auto Private Auto Medication Reconcilliation completed & Yes No provided to patient/care provider Clinical Summary of Care Provided Yes No 07/11/21 09:46 Wound Care Nurse 3 1-right medial ankle ulcer -Ulcer Cleansing Rinsed/ Irrigated with Saline -Foul Odor after Cleansing No -Primary Dressing Applied C Hydrogel ($) -Primary Dressing Covered/Secured with Dry Gauze, Secured with Tape -Promogran Vidhi Matter Right -Tubular Bandage Double Layer -Size of Tubigrip Used Size E -Size E ($) 2 Vital Signs Temperature (97.8 F-99.1 F) Temperature Source Pulse Rate (60-100) Pulse Location Blood Pressure (90/60-120/80) Blood Pressure Mean (mm Hg) Source Pain Scale: 0-10 Numeric Is Patient Pain Free? Yes WC - Visit Discharge Discharge Condition Stable Ambulatory Status Ambulatory Transportation Private Auto Medication Reconcilliation completed & Yes provided to patient/care provider Clinical Summary of Care Provided Yes Assessment/Plan Assessment/Plan (1) Non-pressure chronic ulcer of right ankle with fat layer exposed: CODE(S): L97.312 - Non-pressure chronic ulcer of right ankle with fat layer exposed (2) Varicose veins of lower extremity with pain: CODE(S): I83.819 - Varicose veins of unspecified lower extremity with pain (3) Pain in right ankle and joints of right foot: CODE(S): M25.571 - Pain in right ankle and joints of right foot (4) Edema of lower extremity due to peripheral venous insufficiency: CODE(S): I87.2 - Venous insufficiency (chronic) (peripheral) (5) Radiculopathy, lumbar region: CODE(S): M54.16 - Radiculopathy, lumbar region (6) H/O acute gouty arthritis: CODE(S): Z87.39 - Personal history of other diseases of the musculoskeletal system and connective tissue PLAN: This is a 65-year-old male who presents to the wound care center for a right medial ankle wound secondary to chronic venous insufficiency. He has a history of gout and radiculopathy of the lumbar region. He has tried to wear compression stockings but states that he could only tolerate them for a few hours and at the end of the work shift his legs hurt and he has to remove them. He was followed by his primary physician care physician for this wound but states it had made little progress. He had previously tried topical lidocaine to control the pain and states that he previously had an incident where he passed out, likely due to topical lidocaine absorption. Patient states he is continuing to wear compression stockings with very little discomfort or pain. He notices the ulceration site demonstrates no pain and is almost closed over. Ulceration right medial ankle distal to the medial malleolus underwent selective debridement with moistened gauze to patient tolerance. Debridement was performed removing fibrous, devitalized subcutaneous, biofilm, slough. Ulceration demonstrates continued reduction in size closing at the most inferior portion and the surrounding rubor has resolved along with his localized edema to the right lower extremity. He states that he has no pain with this ulceration site, and only cites minimal pain after debridement. He is very pleased with his continued reduction in ulceration size. Ulceration site dressed with hydrogel, dry sterile dressing. Patient to continue to wear his compression stockings. He voices understanding of this. He is continuing to make good progress and the wound is continuing to decrease in size and is almost completely closed over. I discussed with him to continue to elevate lower extremities at times of rest and continue to wear his compression stockings full-time. I discussed with him that it is essential to be compliant in the use of the compression stockings to promote wound healing, discourage further edema, and ulcerative wounds secondary to his chronic venous insufficiency. He voices understanding of this. I discussed with him that he is to continue to change the dressings daily consisting of hydrogel to the site and dressing with clean sterile dry dressings. I discussed with him that he is to monitor for any localized signs of redness or redness that may spread up the leg, purulent drainage, malodor, in creasing pain that is not controlled by [id number] pain medications, or if he experiences any fever, nausea, vomiting, or chills that he is to report to the emergency department as these are signs of progressing infection. Patient voices understanding of this. I reviewed and discussed his case today. Debridement was performed today as noted in the clinical panel to all of the ulcer sites. The following work up and care recommendations were made: Dressing: hydrogel Wash: Soap and water. He may pat the site dry Tissue growth optimization: Hydrogel Offload: Compression via compression stockings Vascular: Vascular status intact with palpable pedal pulses Edema: Patient to wear compression stockings and elevate lower extremities to control edema Infection: No localized signs of infection Pain: Patient may take [id number] Tylenol extra strength and alternate with Motrin Host factors: Chronic venous insufficiency I answered all the patient's questions. To return to the wound healing center in 1 week or call sooner if the patient has any questions or concerns. Note: [employer] speech recognition director of residence life software was used to create portions of this document. Sound-alike and misspelled words, as well as other director of residence life errors may be contained in the documentation.
[2021-07-18 09:18] VITALS: BP 146/77; PULSE 105; TEMP 36.6; BMI 32.3
--- NOTE | 2021-07-18 10:26 | PN.PCM_ITS ---
History of Present Illness Date of Service: 07/18/21 Chief Complaint: Wound right medial ankle History of Wound: This is a 65-year-old male who presents with a wound to the right medial ankle just distal to the malleoli secondary to rupture of a varicose vein complicated by smoking and venous insufficiency and edema. He states that he has been dealing with this wound for a few months and has been applying topical lidocaine for pain control. His family physician has recommended compression stockings and he states that he tries to wear them but states they are too painful and cannot continue to wear them for the duration of the day. He states he can only last a few hours in them. He states that the site is painful and has shown very little progression. His family physician has referred him to the wound care center to continue his treatment. He denies any weeping to the wound site. He denies any nausea, vomiting, fever, chills, or shortness of breath or other constitutional symptoms. Subjective Subjective This is a 65-year-old male who presents to the wound care center for follow-up of ulceration right medial ankle secondary to chronic venous insufficiency, and ruptured varicose vein. He denies any nausea, vomiting, fever, chills, shortness of breath, or other constitutional symptoms. He states that he continues to wear the shoe with a cut out the side on his right shoe so that it does not rub against his ulceration site which causes him pain. He states this is helping him. He states he is applying the hydrogel and Vidhi to the wound site and elevating his legs when at rest. He states that he has been wearing compression stockings. He states that he has no pain and is very pleased with his healing progress and feels his wound healed. He has no other complaints. Objective Data Objective Data Vital Signs: Vital Signs Temp Pulse Resp BP 97.8 F 105 H 18 146/77 H 07/18/21 09:18 07/18/21 09:18 07/11/21 08:59 07/18/21 09:18 Weight: 90.718 kg Body Mass Index (BMI) 32.3 Physical Exam Const alert, oriented x3 and no apparent distress General Appearance: cooperative and comfortable HEENT normocephalic Eyes General Eye: normal appearance of both eyes Neck General: normal visual inspection Lymph Lymphatic: no lymphadenopathy noted and no lymphedema noted Chest inspection of chest normal Resp normal respiratory effort Cardio regular rate and regular rhythm Skin Skin Narrative: Skin is intact, soft and supple to palpation with normal skin turgor. Right lower extremity wound is noted just distal to the medial malleolus with mixed fibrous granular tissue base and puckered skin margins with surrounding rubor, which is decreasing, and hemosiderin deposition secondary to chronic venous insufficiency. Localized edema about the site is resolving. Wound demonstrates no localized erythema, purulent drainage, malodor, proximal streaking, or other localized signs of infection. There is no drainage to the wound base or from the wound. There are varicosities noted along the medial ankle and medial foot. Neuro oriented x3 and moves all extremities Motor Exam: strength 5/5 throughout Debridement Note Debridement Note No debridement was completed: No debridement was completed today Post-Debridement Measurements and Additional Note: Post-Debridement Measurements/Treatment - Nurse 1 - General Ulcer Assessment Start: 06/20/21 08:39 Freq: Status: Active Protocol: .ALBERTEXT Activity Type Activity Date Activity User E-Sign Co-Sign Detail Recorded Client Recorded Date Recorded By Document 06/20/21 08:39 [id number] 06/20/21 08:49 JF Edit Result 06/20/21 08:39 JF (1) [id number] 06/20/21 08:53 JF Document 06/27/21 08:44 KR [id number] 06/27/21 08:45 KR Document 07/04/21 09:43 AK [id number] 07/04/21 09:45 AK Document 07/11/21 08:59 JF [id number] 07/11/21 09:04 JF Document 07/18/21 09:18 KR [id number] 07/18/21 09:22 KR (1) Blood Pressure (90/60-120/80) 160/118 H => 135/103 H Blood Pressure Mean (mm Hg) 132 => 113 06/20/21 06/27/21 07/04/21 08:39 08:44 09:43 - Today's Visit Information Type of service Follow-up Visit Follow-up Visit Follow-up Visit (Physician/BUSINESS PROCESS ENGINEER (Physician/BUSINESS PROCESS ENGINEER (Physician/BUSINESS PROCESS ENGINEER ) ) ) Arrival Mode Ambulatory Ambulatory Ambulatory Patient Identification Verified (Name & Yes Yes Yes ) Patient Requires Transmission-Based No No Precautions Safety Precautions NA Height and Weight Body Mass Index (BMI) 32.3 32.3 32.3 BMI Classification Obese Obese Obese Vital Signs Temperature (97.8 F-99.1 F) 97.7 F L 97.0 F L 97.2 F L Temperature Source Temporal Temporal Temporal Pulse Rate (60-100) 106 H 101 H 89 Pulse Location Monitor Monitor Monitor Respiratory Rate (12-18) 18 Respiratory rate source Blood Pressure (90/60-120/80) 135/103 H 150/90 H 149/86 H Blood Pressure Mean (mm Hg) 113 110 107 Source Monitor Monitor Monitor Position Semi-Fowlers Sitting Blood Pressure Location Left Arm Right Arm History Since Last Visit- (Skip if this is Patient's initial visit) Have you changed medications since your No No No last visit? Any new allergies or adverse reactions No No No Had a fall/change in ADL's that may No No No increase risk of falls Signs or symptoms of abuse and/or No No No neglect since last visit Have you been in the hospital since your No No No last visit? Has dressing in place as prescribed Yes Yes Yes Has compression in place as prescribed Yes Yes N/A Has offloadiing in place as prescribed N/A N/A N/A Experienced any changes in pain level or No No management Left Footwear Regular Shoe Regular Shoe Regular Shoe Right Footwear Regular Shoe Regular Shoe Regular Shoe Pain Scale: 0-10 Numeric Is Patient Pain Free? Yes Yes Yes 07/11/21 07/18/21 08:59 09:18 WC - Today's Visit Information Type of service Follow-up Visit Follow-up Visit (Physician/BUSINESS PROCESS ENGINEER (Physician/BUSINESS PROCESS ENGINEER ) ) Arrival Mode Ambulatory Ambulatory Patient Identification Verified (Name & Yes Yes ) Patient Requires Transmission-Based No Precautions Safety Precautions Height and Weight Body Mass Index (BMI) 32.3 32.3 BMI Classification Obese Obese Vital Signs Temperature (97.8 F-99.1 F) 96.6 F L 97.8 F Temperature Source Temporal Temporal Pulse Rate (60-100) 93 105 H Pulse Location Monitor Monitor Respiratory Rate (12-18) 18 Respiratory rate source Observation Blood Pressure (90/60-120/80) 158/96 H 146/77 H Blood Pressure Mean (mm Hg) 116 100 Source Monitor Monitor Position Semi-Fowlers Sitting Blood Pressure Location Left Arm Left Arm History Since Last Visit- (Skip if this is Patient's initial visit) Have you changed medications since your No No last visit? Any new allergies or adverse reactions No No Had a fall/change in ADL's that may No No increase risk of falls Signs or symptoms of abuse and/or No No neglect since last visit Have you been in the hospital since your No No last visit? Has dressing in place as prescribed Yes Yes Has compression in place as prescribed Yes N/A Has offloadiing in place as prescribed Yes N/A Experienced any changes in pain level or No No management Left Footwear Regular Shoe Regular Shoe Right Footwear Regular Shoe Regular Shoe Pain Scale: 0-10 Numeric Is Patient Pain Free? Yes Yes WC - Nurse 1 - General Ulcer Measurement Start: 06/20/21 08:39 Freq: Status: Active Protocol: Activity Type Activity Date Activity User E-Sign Co-Sign Detail Recorded Client Recorded Date Recorded By Document 06/20/21 08:39 [id number] 06/20/21 08:49 JF Document 06/27/21 08:44 KR [id number] 06/27/21 08:45 KR Document 07/04/21 09:43 AK [id number] 07/04/21 09:45 AK Document 07/11/21 08:59 [id number] 07/11/21 09:04 JF Document 07/18/21 09:18 KR [id number] 07/18/21 09:22 KR 06/20/21 06/27/21 07/04/21 08:39 08:44 09:43 Wound Center Nurse 1 1-right medial ankle ulcer -Combined with other wound No No -Current Size (cm) - Length 0.3 0.1 0.1 -Current Size (cm) - Width 0.3 0.1 0.1 -Current Size (cm) - Depth 0.1 0.1 0.1 -Total Square Cm 0.09 0.01 0.01 -Photo Taken Yes No -Epithelialization Small 1-33% -Tunneling No No -Undermining/Tunneling No -Circular Undermining No -Exudate Amt -Exudate Type Serosanguineous -Wound Margin Flat & Intact -Granulation Amt Small (1-33%) -Granulation Quality [place] -Slough/Fibrin Yes -Necrosis Amt Small (1-33%) -Necrotic Tissue Type -Structure Exposed N/A -Texture (Марина-wound Skin Appearance) Assessed, No Abnormality, Localized Edema Assessed -Moisture (Марина-wound Skin Appearance) Assessed No Abnormality, Assessed -Color (Марина-wound Skin Appearance) Assessed, No Abnormality, Hemosiderin Assessed Staining -Temperature (Марина-wound Skin No Abnormality Appearance) (Pt Warm) -Tenderness on Palpation (Марина-wound Skin Appearance) -Ulcer Cleansing Rinsed/ Irrigated with Saline -Foul Odor after Cleansing No -Anesthetic Used 4% Lidocaine 4% Lidocaine Solution Solution Lower Limb Edema Present Yes Right Calf (cm) 39.8 39.3 37.5 Right Ankle (cm) 23.4 23.6 23.5 07/11/21 07/18/21 08:59 09:18 Wound Center Nurse 1 1-right medial ankle ulcer -Combined with other wound No -Current Size (cm) - Length 0.1 0.1 -Current Size (cm) - Width 0.1 0.1 -Current Size (cm) - Depth 0.1 0.1 -Total Square Cm 0.01 0.01 -Photo Taken No -Epithelialization Large 67-100% -Tunneling No -Undermining/Tunneling No -Circular Undermining No -Exudate Amt None Present None Present -Exudate Type -Wound Margin Flat & Intact Distinct, Outline Attached -Granulation Amt None Present (0 %) -Granulation Quality -Slough/Fibrin -Necrosis Amt Small (1-33%) None Present (0 %) -Necrotic Tissue Type Adherent Slough -Structure Exposed N/A -Texture (Марина-wound Skin Appearance) Assessed Scarring -Moisture (Марина-wound Skin Appearance) Assessed,Dry/ No Abnormality, Scaly Assessed -Color (Марина-wound Skin Appearance) Assessed No Abnormality, Assessed -Temperature (Марина-wound Skin No Abnormality No Abnormality Appearance) (Pt Warm) (Pt Warm) -Tenderness on Palpation (Марина-wound No No Skin Appearance) -Ulcer Cleansing Rinsed/ Rinsed/ Irrigated with Irrigated with Saline Saline -Foul Odor after Cleansing No No -Anesthetic Used Lower Limb Edema Present Yes Right Calf (cm) 40.6 Right Ankle (cm) 23.3 WC - Nurse 2 - General Ulcer CM Notes Start: 06/20/21 08:39 Freq: Status: Active Protocol: Activity Type Activity Date Activity User E-Sign Co-Sign Detail Recorded Client Recorded Date Recorded By Document 06/20/21 12:38 PL [id number] 06/20/21 12:39 PL Document 06/27/21 12:53 PL [id number] 06/27/21 12:55 PL Document 07/04/21 14:48 PL [id number] 07/04/21 14:48 PL Document 07/11/21 10:23 PL Desktop 07/11/21 10:24 PL 06/20/21 06/27/21 07/04/21 12:38 12:53 14:48 Wound Center Nurse 2 1-right medial ankle ulcer -Time 09:03 09:12 09:16 -Correct Patient Yes Yes Yes -Correct Side, Site, Position Yes Yes Yes -Correct Procedure Yes Yes Yes -Procedure Performed Yes Yes Yes -Type of Procedure Debridement Debridement Debridement -Clinical Debridement Subcutaneous Subcutaneous Subcutaneous -Tissue Removed Subcutaneous Subcutaneous Subcutaneous -Post Debridement (cm) - Length 0.3 0.2 0.1 -Post Debridement (cm) - Width 0.3 0.2 0.1 -Post Debridement (cm) - Depth 0.1 0.1 0.1 -Total Square (Post) (cm) 0.09 0.04 0.01 -Area of Debridement (cm) - Length 0.3 0.2 0.1 -Area of Debridement (cm) - Width 0.3 0.2 0.1 -Total Square (Area) (cm) 0.09 0.04 0.01 -Tunneling No No No -Undermining/Tunneling No No No -Circular Undermining No No No -Wound/Ulcer Outcome Not Healed Not Healed Not Healed -Ulcer Cleansing Rinsed/ Rinsed/ Rinsed/ Irrigated with Irrigated with Irrigated with Saline Saline Saline -Foul Odor after Cleansing No No No -Bioengineered Tissue No No No -Bleeding Controlled with Pressure Pressure Pressure -Treatment Response Procedure Procedure Procedure Tolerated Well Tolerated Well Tolerated Well -Debridement - Open, 1st 20sq cm -Debridement - Subq, 1st 20sq cm Yes Yes Yes Pain Scale: 0-10 Numeric Is Patient Pain Free? Yes Yes Yes 07/11/21 10:23 Wound Center Nurse 2 1-right medial ankle ulcer -Time 09:36 -Correct Patient Yes -Correct Side, Site, Position Yes -Correct Procedure Yes -Procedure Performed Yes -Type of Procedure Debridement -Clinical Debridement Epidermis / Dermis -Tissue Removed Epidermis, Dermis -Post Debridement (cm) - Length 0.1 -Post Debridement (cm) - Width 0.1 -Post Debridement (cm) - Depth 0.1 -Total Square (Post) (cm) 0.01 -Area of Debridement (cm) - Length 0.1 -Area of Debridement (cm) - Width 0.1 -Total Square (Area) (cm) 0.01 -Tunneling No -Undermining/Tunneling -Circular Undermining No -Wound/Ulcer Outcome Not Healed -Ulcer Cleansing Rinsed/ Irrigated with Saline -Foul Odor after Cleansing No -Bioengineered Tissue No -Bleeding Controlled with Pressure -Treatment Response Procedure Tolerated Well -Debridement - Open, 1st 20sq cm Yes -Debridement - Subq, 1st 20sq cm Pain Scale: 0-10 Numeric Is Patient Pain Free? Yes WC - Nurse 3 - General Ulcer D/C NN Start: 06/20/21 08:39 Freq: Status: Active Protocol: Activity Type Activity Date Activity User E-Sign Co-Sign Detail Recorded Client Recorded Date Recorded By Document 06/20/21 09:17 AK [id number] 06/20/21 09:18 AK Document 06/27/21 09:48 KR [id number] 06/27/21 09:49 KR Document 07/04/21 09:43 AK [id number] 07/04/21 09:45 AK Document 07/11/21 09:46 JF [id number] 07/11/21 09:47 JF 06/20/21 06/27/21 07/04/21 09:17 09:48 09:43 Wound Care Nurse 3 1-right medial ankle ulcer -Ulcer Cleansing Rinsed/ Rinsed/ Rinsed/ Irrigated with Irrigated with Irrigated with Saline Saline Saline -Foul Odor after Cleansing No No -Primary Dressing Applied Promogran Promogran C Hydrogel ($), Vidhi Matter Vidhi Matter Promogran Vidhi Matter -Primary Dressing Covered/Secured with Dry Gauze, Dry Gauze, Dry Gauze, Secured with Secured with Secured with Tape Tape Tape -Promogran Vidhi Matter 1 1 1 Right -Tubular Bandage -Size of Tubigrip Used -Size E ($) Vital Signs Temperature (97.8 F-99.1 F) 97.2 F L Temperature Source Temporal Pulse Rate (60-100) 89 Pulse Location Monitor Blood Pressure (90/60-120/80) 149/86 H Blood Pressure Mean (mm Hg) 107 Source Monitor Pain Scale: 0-10 Numeric Is Patient Pain Free? No Yes Yes WC - Visit Discharge Discharge Condition Stable Stable Ambulatory Status Ambulatory Transportation Private Auto Private Auto Medication Reconcilliation completed & Yes No provided to patient/care provider Clinical Summary of Care Provided Yes No 07/11/21 09:46 Wound Care Nurse 3 1-right medial ankle ulcer -Ulcer Cleansing Rinsed/ Irrigated with Saline -Foul Odor after Cleansing No -Primary Dressing Applied C Hydrogel ($) -Primary Dressing Covered/Secured with Dry Gauze, Secured with Tape -Promogran Vidhi Matter Right -Tubular Bandage Double Layer -Size of Tubigrip Used Size E -Size E ($) 2 Vital Signs Temperature (97.8 F-99.1 F) Temperature Source Pulse Rate (60-100) Pulse Location Blood Pressure (90/60-120/80) Blood Pressure Mean (mm Hg) Source Pain Scale: 0-10 Numeric Is Patient Pain Free? Yes WC - Visit Discharge Discharge Condition Stable Ambulatory Status Ambulatory Transportation Private Auto Medication Reconcilliation completed & Yes provided to patient/care provider Clinical Summary of Care Provided Yes Assessment/Plan Assessment/Plan (1) Non-pressure chronic ulcer of right ankle with fat layer exposed: CODE(S): L97.312 - Non-pressure chronic ulcer of right ankle with fat layer exposed (2) Varicose veins of lower extremity with pain: CODE(S): I83.819 - Varicose veins of unspecified lower extremity with pain (3) Pain in right ankle and joints of right foot: CODE(S): M25.571 - Pain in right ankle and joints of right foot (4) Edema of lower extremity due to peripheral venous insufficiency: CODE(S): I87.2 - Venous insufficiency (chronic) (peripheral) (5) Radiculopathy, lumbar region: CODE(S): M54.16 - Radiculopathy, lumbar region (6) H/O acute gouty arthritis: CODE(S): Z87.39 - Personal history of other diseases of the musculoskeletal system and connective tissue PLAN: This is a 65-year-old male who presents to the wound care center for a right medial ankle wound secondary to chronic venous insufficiency. He has a history of gout and radiculopathy of the lumbar region. He has tried to wear compression stockings but states that he could only tolerate them for a few hours and at the end of the work shift his legs hurt and he has to remove them. He was followed by his primary physician care physician for this wound but states it had made little progress. He had previously tried topical lidocaine to control the pain and states that he previously had an incident where he passed out, likely due to topical lidocaine absorption. I reviewed his case today. His ulceration site to the right lower extremity is healed today. He is very pleased in his progress today. Patient states he is continuing to wear compression stockings with very little discomfort or pain. He is instructed to continue with his compression stockings. He is also to elevate lower extremities at times of rest to aid in edema control. I answered all the patient's questions to his level of satisfaction He is welcome to follow with me for any future foot or ankle problems in my office. Dr. Farhad Hernandez Jr. D.P.M. [facility] [phone] Note: [employer] [place] speech recognition linoleum printer software was used to create portions of this document. Sound-alike and misspelled words, as well as other linoleum printer errors may be contained in the documentation.
== END 2021-07-18 15:56 | disposition home or self-care (01) ==
LOC: WC 09:15
PROVIDERS: PCP Internal Medicine; Visit Provider Student in an Organized Health Care Education/Training Program
DX: L97.312 Non-pressure chronic ulcer of right ankle with fat layer exposed (principal); M25.571 Pain in right ankle and joints of right foot; R60.0 Localized edema; M54.16 Radiculopathy, lumbar region; I83.819 Varicose veins of unspecified lower extremity with pain; I87.2 Venous insufficiency (chronic) (peripheral); Z87.39 Personal history of other diseases of the musculoskeletal system and connective tissue
CPT/HCPCS: 11042; 97597; 99213; G0463